=== PATIENT | male | born 1970 | race African-American/Black ===

== ENCOUNTER 2018-11-05 13:29 | Emergency (ER) | payer MEDICAID, OTHER ==
[~2018-11-05] VITALS: Ht 185.4 cm; Wt 77.0 kg
[2018-11-05 18:15] VITALS: BP 159/88
== END 2018-11-05 18:30 | disposition home or self-care (01) ==
LOC: ER 13:29
DX: R07.89 Other chest pain (principal); R51 Headache; E11.22 Type 2 diabetes mellitus with diabetic chronic kidney disease; I12.0 Hypertensive chronic kidney disease with stage 5 chronic kidney disease or end stage renal disease; N18.9 Chronic kidney disease, unspecified; Z99.2 Dependence on renal dialysis; Z88.0 Allergy status to penicillin
CPT/HCPCS: 71045; 93005; 99283

== ENCOUNTER 2019-01-07 11:12 | Emergency (ER) | payer OTHER ==
[~2019-01-07] VITALS: Ht 185.4 cm; Wt 82.0 kg
[2019-01-07 12:02] LABS: BASOPHILS % 0.7 % (0.0-2.0); EOSINOPHILS % 3.1 % (0.0-5.0); HEMATOCRIT. 29.9 % (42.0-52.0); LYMPHOCYTES % 13.2 % (20.0-50.0); MEAN CORPUSCULAR HEMOGLOBIN 26.8 pg (28.0-32.0); MEAN CORPUSCULAR VOLUME 80.4 fL (80.0-94.0); MEAN PLATELET VOLUME 6.4 fl (7.4-10.4); MONOCYTES % 7.9 % (2.0-8.0); NEUTROPHILS % 75.1 % (40.0-76.0); PLATELET 374 x1000/uL (130-400); RED BLOOD CELL COUNT 3.72 mill/uL (4.7-6.1); RED CELL DISTRIBUTION WIDTH 14.6 % (11.6-14.6)
[2019-01-07 12:07] LABS: CHLORIDE 95 mEq/L (98-107)
[2019-01-07 12:09] LABS: PROTHROMBIN TIME 10.6 sec (9.6-11.0)
[2019-01-07] MEDS ORDERED: LEVOFLOXACIN 750MG PREMIX 150 ML IV ONE (12:45)
[2019-01-07 16:05] VITALS: BP 181/87
== END 2019-01-07 16:20 | disposition short-term general hospital (02) ==
LOC: ER 11:12 → CANBEDREQ 14:29 → ER 16:20
DX: I13.2 Hypertensive heart and chronic kidney disease with heart failure and with stage 5 chronic kidney disease, or end stage renal disease (principal); I50.9 Heart failure, unspecified; J18.1 Lobar pneumonia, unspecified organism; E11.22 Type 2 diabetes mellitus with diabetic chronic kidney disease; N18.6 End stage renal disease; Z99.2 Dependence on renal dialysis; Z79.899 Other long term (current) drug therapy
CPT/HCPCS: 36415; 71045; 80053; 83880; 84484; 85025; 85610; 93005; 99285; J1956; Z7610

== ENCOUNTER 2020-02-15 11:17 | Emergency (ER) | payer OTHER ==
[~2020-02-15] VITALS: Ht 185.4 cm; Wt 80.0 kg
[~2020-02-15 11:17] MED LIST: LOSA100T32 MT; NIFE60TA78 MT
[2020-02-15 12:45] LABS: BASOPHILS % 0.8 % (0.0-2.0); EOSINOPHILS % 2.8 % (0.0-5.0); HEMATOCRIT. 25.1 % (42.0-52.0); HEMOGLOBIN. 8.3 g/dL (14.0-18.0); LYMPHOCYTES % 14.8 % (20.0-50.0); MEAN CORPUSCULAR HEMOGLOBIN 29.2 pg (28.0-32.0); MEAN CORPUSCULAR VOLUME 88.4 fL (80.0-94.0); MEAN PLATELET VOLUME 7.3 fl (7.4-10.4); MONOCYTES % 7.6 % (2.0-8.0); PLATELET 278 x1000/uL (130-400); RED BLOOD CELL COUNT 2.84 mill/uL (4.7-6.1); RED CELL DISTRIBUTION WIDTH 15.7 % (11.6-14.6)
[2020-02-15 12:49] LABS: CHLORIDE 103 mEq/L (98-107)
[2020-02-15 13:00] LABS: PROTHROMBIN TIME 10.8 sec (9.6-11.0)
[2020-02-15 14:34] VITALS: BP 153/66
[2020-02-26] MEDS ORDERED: LEVO500T2 MT (09:09)
== END 2020-02-15 14:38 | disposition home or self-care (01) ==
LOC: ER 11:17
DX: U07.1 COVID-19 (principal); R06.02 Shortness of breath; R05 Cough; N18.6 End stage renal disease; Z99.2 Dependence on renal dialysis
CPT/HCPCS: 36415; 71045; 80053; 84484; 85025; 87635; 93005; 99284; 99285

== ENCOUNTER 2020-06-29 11:03 | Emergency (ER) | payer OTHER ==
[~2020-06-29] VITALS: Ht 182.9 cm; Wt 76.0 kg
[2020-06-29 11:51] LABS: HEMATOCRIT. 27.2 % (42.0-52.0); HEMOGLOBIN. 8.4 g/dL (14.0-18.0); MEAN CORPUSCULAR HEMOGLOBIN 25.9 pg (28.0-32.0); MEAN CORPUSCULAR VOLUME 83.8 fL (80.0-94.0); MEAN PLATELET VOLUME 7.6 fl (7.4-10.4); PLATELET 303 x1000/uL (130-400); RED BLOOD CELL COUNT 3.24 mill/uL (4.7-6.1); RED CELL DISTRIBUTION WIDTH 16.4 % (11.6-14.6)
[2020-06-29 12:00] LABS: CHLORIDE 93 mEq/L (98-107)
[2020-06-29 12:02] LABS: INR 1.2; PROTHROMBIN TIME 12.1 sec (9.6-11.0)
[2020-06-29 12:45] LABS: PLATELET ESTIMATE NORMAL
[2020-06-29] MEDS ORDERED: ASPIRIN 81MG TABLET PO NR (13:30)
[2020-06-29] MEDS ORDERED: NITROGLYCERIN OINT 1GM/INCH UDPKT TD NR (13:30)
[2020-06-29 15:29] VITALS: BP 170/80
== END 2020-06-29 15:53 | disposition short-term general hospital (02) ==
LOC: ER 11:03 → CANBEDREQ 15:51 → ER 15:53
DX: U07.1 COVID-19 (principal); I13.2 Hypertensive heart and chronic kidney disease with heart failure and with stage 5 chronic kidney disease, or end stage renal disease; I50.9 Heart failure, unspecified; N18.6 End stage renal disease; E87.2 Acidosis; Z99.2 Dependence on renal dialysis
CPT/HCPCS: 36415; 71045; 80053; 82962; 83605; 83880; 84145; 84484; 85025; 85610; 87040; 87635; 93005; 99285; Z7610

== ENCOUNTER 2020-07-24 11:59 | Inpatient (IN) | payer OTHER ==
[~2020-07-24] VITALS: Ht 182.9 cm; Wt 97.5 kg
[2020-07-24 13:10] LABS: HEMATOCRIT. 23.6 % (42.0-52.0); HEMOGLOBIN. 7.6 g/dL (14.0-18.0); MEAN CORPUSCULAR HEMOGLOBIN 27.3 pg (28.0-32.0); MEAN CORPUSCULAR VOLUME 84.9 fL (80.0-94.0); MEAN PLATELET VOLUME 8.1 fl (7.4-10.4); PLATELET 250 x1000/uL (130-400); RED BLOOD CELL COUNT 2.78 mill/uL (4.7-6.1); RED CELL DISTRIBUTION WIDTH 17.4 % (11.6-14.6)
[2020-07-24 13:15] LABS: CHLORIDE 83 mEq/L (98-107)
[2020-07-24 13:40] LABS: PLATELET ESTIMATE NORMAL
[2020-07-24] MEDS ORDERED: LORAZEPAM 0.5MG TABLET PO PRN (17:00)
[2020-07-24] MEDS ORDERED: ACETAMINOPHEN 325MG TABLET PO PRN (17:00)
[2020-07-24 17:40] LABS: BG BASE EXCESS -3.4 mmol/L (-2.0-2.0); BG CARBOXYHEMOGLOBIN 0.3 % (0.5-1.5); BG DEOXYHEMOGLOBIN 4.5 % (0.0-5.0); BG HCO3 ACT 21.6 mmol/L (22.0-26.0); BG METHEMOGLOBIN 0.1 % (0.0-1.5); BG OXYGEN SATURATION 95.5 % (92.0-98.5); BG OXYHEMOGLOBIN 95.1 % (94.0-97.0); BG PCO2 38.9 mmHg (35.0-45.0); BG PH 7.363 (7.350-7.450); BG PO2 90.2 mmHg (75.0-100.0); BG SAMPLE SITE RIGHT RADIAL; BG TOTAL HEMOGLOBIN 7.5 g/dL (12.0-18.0); BG VENT MODE ROOM AIR
[2020-07-24] MEDS: CLONIDINE 0.1MG TABLET PO PRN (18:22)
[2020-07-24] MEDS ORDERED: DEXTROSE 50% WATER 50ML SYRINGE IV PRN (20:00)
[2020-07-24] MEDS: INSULIN LISPRO (LOW DOSE) 100 UNITS/ML SUBCUT SCH (21:00)
[2020-07-24] MEDS: BLOOD SUGAR DIAGNOSTIC STRIP TEST SCH (21:34)
[2020-07-25] VITALS (30 sets, daily range): BP systolic 137–162; BP diastolic 49–86
[2020-07-25 05:20] LABS: BASOPHILS % 0.3 % (0.0-2.0); LYMPHOCYTES % 9.7 % (20.0-50.0); MEAN CORPUSCULAR HEMOGLOBIN 27.7 pg (28.0-32.0); MEAN CORPUSCULAR VOLUME 83.6 fL (80.0-94.0); MEAN PLATELET VOLUME 7.7 fl (7.4-10.4); MONOCYTES % 9.5 % (2.0-8.0); NEUTROPHILS % 77.5 % (40.0-76.0); PLATELET 204 x1000/uL (130-400); RED BLOOD CELL COUNT 2.35 mill/uL (4.7-6.1); RED CELL DISTRIBUTION WIDTH 17.1 % (11.6-14.6)
[2020-07-25 06:12] LABS: HEMATOCRIT. 19.7 % (42.0-52.0); HEMOGLOBIN. 6.5 g/dL (14.0-18.0)
[2020-07-25] MEDS: BLOOD SUGAR DIAGNOSTIC STRIP TEST SCH ×4 (06:30→21:00)
[2020-07-25] MEDS: INSULIN LISPRO (LOW DOSE) 100 UNITS/ML SUBCUT SCH ×4 (07:00→21:00)
[2020-07-25] MEDS ORDERED: CLINDAMYCIN 600MG PREMIX 50 ML IV ONE (10:00)
[2020-07-25] MEDS ORDERED: CLINDAMYCIN 600 MG in DEXTROSE 5% WATER 50 ML IV ONE (10:00)
[2020-07-25] MEDS ORDERED: SODIUM BICARBONATE 4% (2.4MEQ) 5ML VIAL IV ONE (10:56)
[2020-07-25] MEDS ORDERED: LIDOCAINE HCL 1% 20ML VIAL (Pyxis) INJ ONE (10:56)
[2020-07-25] MEDS ORDERED: HEPARIN 1000 UNITS/ML 10ML ONE (10:56)
[2020-07-25] MEDS ORDERED: IOHEXOL-300 100 ML BOTTLE ONE (10:57)
[2020-07-25 11:00] LABS: PARTIAL THROMBOPLASTIN TIME 28.5 sec (23.4-31.0); PROTHROMBIN TIME 10.7 sec (9.6-11.0)
[2020-07-25] MEDS ORDERED: FENTANYL CITRATE/PF 50MCG/ML 2ML VIAL IV ONE (11:00)
[2020-07-25] MEDS ORDERED: FENTANYL CITRATE/PF 50MCG/ML 2ML VIAL ONE (11:05)
[2020-07-25] MEDS: IRON SUCROSE COMPLEX 100 MG/5 ML ML IV SCH (14:56)
[2020-07-25] MEDS ORDERED: MORPHINE SULFATE 2 MG/ML CPJ (NOT FOR IM USE) IV NR ×2 (15:45→16:15)
[2020-07-25] MEDS ORDERED: HYDROCODONE/ACETAMINOPHEN 10/325MG TABLET PO PRN (16:00)
[2020-07-25] MEDS: ACETAMINOPHEN 325MG TABLET PO PRN (23:04)
[2020-07-25] MEDS: EPOETIN ALFA-EPBX 10,000 UNIT/ML VIAL SUBCUT SCH (23:09)
[2020-07-26] VITALS (7 sets, daily range): BP systolic 104–145; BP diastolic 63–72
[2020-07-26 06:01] LABS: BASOPHILS % 0.3 % (0.0-2.0); EOSINOPHILS % 2.6 % (0.0-5.0); LYMPHOCYTES % 8.3 % (20.0-50.0); MEAN CORPUSCULAR HEMOGLOBIN 28.3 pg (28.0-32.0); MEAN CORPUSCULAR VOLUME 84.2 fL (80.0-94.0); MEAN PLATELET VOLUME 8.3 fl (7.4-10.4); MONOCYTES % 9.2 % (2.0-8.0); NEUTROPHILS % 79.6 % (40.0-76.0); PLATELET 192 x1000/uL (130-400); RED BLOOD CELL COUNT 2.24 mill/uL (4.7-6.1); RED CELL DISTRIBUTION WIDTH 17.3 % (11.6-14.6)
[2020-07-26 06:51] LABS: HEMATOCRIT. 18.9 % (42.0-52.0); HEMOGLOBIN. 6.3 g/dL (14.0-18.0)
[2020-07-26] MEDS: INSULIN LISPRO (LOW DOSE) 100 UNITS/ML SUBCUT SCH ×4 (07:40→20:41)
[2020-07-26] MEDS: BLOOD SUGAR DIAGNOSTIC STRIP TEST SCH ×4 (08:04→20:41)
[2020-07-26] MEDS: NIFEDIPINE XL 60MG TAB PO SCH (09:24)
[2020-07-26] MEDS: IRON SUCROSE COMPLEX 100 MG/5 ML ML IV SCH (09:24)
[2020-07-26] MEDS: LOSARTAN POTASSIUM 100 MG TABLET PO SCH (09:24)
[2020-07-26] MEDS: HYDROCODONE/ACETAMINOPHEN 10/325MG TABLET PO PRN ×2 (10:44→20:46)
[2020-07-26] MEDS ORDERED: EPOETIN ALFA-EPBX 10,000 UNIT/ML VIAL SUBCUT SCH (21:00)
[2020-07-27] VITALS: BP 116/85
[2020-07-27 04:00] VITALS: BP 136/64
[2020-07-27 05:53] LABS: BASOPHILS % 0.4 % (0.0-2.0); EOSINOPHILS % 4.2 % (0.0-5.0); LYMPHOCYTES % 12.2 % (20.0-50.0); MEAN CORPUSCULAR HEMOGLOBIN 28.2 pg (28.0-32.0); MEAN PLATELET VOLUME 8.1 fl (7.4-10.4); MONOCYTES % 9.5 % (2.0-8.0); NEUTROPHILS % 73.7 % (40.0-76.0); PLATELET 176 x1000/uL (130-400); RED BLOOD CELL COUNT 2.16 mill/uL (4.7-6.1); RED CELL DISTRIBUTION WIDTH 17.6 % (11.6-14.6)
[2020-07-27 06:06] LABS: HEMATOCRIT. 18.3 % (42.0-52.0); HEMOGLOBIN. 6.1 g/dL (14.0-18.0)
[2020-07-27] MEDS: BLOOD SUGAR DIAGNOSTIC STRIP TEST SCH ×4 (06:26→21:45)
[2020-07-27] MEDS ORDERED: LIDOCAINE HCL 1% 20ML VIAL (Pyxis) INJ ONE (07:10)
[2020-07-27] MEDS ORDERED: BACITRACIN 15GM TUBE TOP ONE (07:10)
[2020-07-27] MEDS ORDERED: BACITRACIN 50,000 UNITS/VIAL ONE (07:11)
[2020-07-27] MEDS ORDERED: BUPIVACAINE HCL/PF 0.5% (5MG/ML) 10ML ONE (07:11)
[2020-07-27] MEDS ORDERED: THROMBIN (BOVINE) 5000 UNITS/VIAL TOP ONE (07:11)
[2020-07-27] MEDS ORDERED: HEPARIN SODIUM 1,000 UNIT/1ML VIAL IV ONE (07:11)
[2020-07-27] MEDS ORDERED: SODIUM CHLORIDE 0.9% INJ 10ML FLUSH IVF ONE (07:11)
[2020-07-27] MEDS ORDERED: SODIUM CHLORIDE 0.9% 250 ML IV ONE (07:12)
[2020-07-27] MEDS ORDERED: SODIUM CHLORIDE 0.9% 1,000 ML ONE (07:12)
[2020-07-27] MEDS: INSULIN LISPRO (LOW DOSE) 100 UNITS/ML SUBCUT SCH ×4 (07:40→21:00)
[2020-07-27] MEDS: HYDROCODONE/ACETAMINOPHEN 10/325MG TABLET PO PRN ×2 (07:46→18:12)
[2020-07-27 09:10] VITALS: BP 137/63
[2020-07-27] MEDS: LOSARTAN POTASSIUM 100 MG TABLET PO SCH (09:13)
[2020-07-27] MEDS: NIFEDIPINE XL 60MG TAB PO SCH (09:14)
[2020-07-27] MEDS: IRON SUCROSE COMPLEX 100 MG/5 ML ML IV SCH (09:14)
[2020-07-27] MEDS ORDERED: MORPHINE SULFATE 2 MG/ML CPJ (NOT FOR IM USE) IV PRN (10:30)
[2020-07-27] MEDS ORDERED: ROPIVACAINE HCL 10MG/ML 20 ML VIAL EPI ONE (11:15)
[2020-07-27] MEDS ORDERED: MIDAZOLAM HCL 2 MG/2 ML VIAL ONE ×2 (11:19→11:58)
[2020-07-27] MEDS ORDERED: FENTANYL CITRATE/PF 50MCG/ML 2ML VIAL ONE (11:20)
[2020-07-27] MEDS ORDERED: LIDOCAINE HCL/PF 1% 10 MG/ML 5ML VIAL ONE ×2 (11:23→11:25)
[2020-07-27] MEDS ORDERED: CLINDAMYCIN 900 MG PREMIX 50 ML IV ONE (11:33)
[2020-07-27] MEDS ORDERED: DIPHENHYDRAMINE 50MG/ML VIAL ONE (11:51)
[2020-07-27] MEDS ORDERED: EPHEDRINE SULFATE 50MG/ML VIAL ONE (12:23)
[2020-07-27] MEDS ORDERED: FLUMAZENIL 0.1 MG/ML 5ML VIAL IV ONE (13:32)
[2020-07-27] MEDS ORDERED: HEPARIN 1000 UNITS/ML 10ML ONE (13:38)
[2020-07-27] MEDS ORDERED: HYDROMORPHONE HCL/PF 2MG/ML CPJ IV PRN (14:00)
[2020-07-27] MEDS ORDERED: IPRATROPIUM/ALBUTEROL 0.5-3(2.5)MG/3ML NEB HHN SCH (18:45)
[2020-07-27] MEDS ORDERED: LACTULOSE 20G/30ML UDC PO NR (19:00)
[2020-07-27 20:00] VITALS: BP 131/63
[2020-07-27 21:22] LABS: HEPATITIS B SURFACE AB < 3.1 mIU/mL
[2020-07-27 21:34] LABS: HEPATITIS B SURFACE ANTIGEN NEGATIVE
[2020-07-27] MEDS: EPOETIN ALFA-EPBX 10,000 UNIT/ML VIAL SUBCUT SCH (21:45)
[2020-07-28] VITALS: BP 114/57
[2020-07-28] MEDS ORDERED: IPRATROPIUM/ALBUTEROL 0.5-3(2.5)MG/3ML NEB HHN SCH
[2020-07-28 04:00] VITALS: BP 113/55
[2020-07-28] MEDS: HYDROCODONE/ACETAMINOPHEN 10/325MG TABLET PO PRN ×2 (04:02→19:39)
[2020-07-28 06:58] LABS: MEAN CORPUSCULAR HEMOGLOBIN 28.5 pg (28.0-32.0); MEAN CORPUSCULAR VOLUME 85.1 fL (80.0-94.0); MEAN PLATELET VOLUME 7.9 fl (7.4-10.4); PLATELET 147 x1000/uL (130-400); RED BLOOD CELL COUNT 2.38 mill/uL (4.7-6.1); RED CELL DISTRIBUTION WIDTH 16.6 % (11.6-14.6)
[2020-07-28] MEDS: INSULIN LISPRO (LOW DOSE) 100 UNITS/ML SUBCUT SCH ×4 (07:40→21:00)
[2020-07-28 07:50] LABS: HEMATOCRIT. 20.2 % (42.0-52.0); HEMOGLOBIN. 6.8 g/dL (14.0-18.0)
[2020-07-28 08:00] VITALS: BP 106/50
[2020-07-28] MEDS: BLOOD SUGAR DIAGNOSTIC STRIP TEST SCH ×4 (08:03→21:43)
[2020-07-28] MEDS: LOSARTAN POTASSIUM 100 MG TABLET PO SCH (09:00)
[2020-07-28] MEDS: NIFEDIPINE XL 60MG TAB PO SCH (09:00)
[2020-07-28] MEDS: IRON SUCROSE COMPLEX 100 MG/5 ML ML IV SCH (09:26)
[2020-07-28 12:00] VITALS: BP 136/76
[2020-07-28] MEDS ORDERED: DILTIAZEM HCL 5MG/ML 5ML VIAL IV SCH ×2 (13:30→21:00)
[2020-07-28] MEDS ORDERED: DILTIAZEM HCL 60MG TABLET PO NR (13:45)
[2020-07-28 14:01] LABS: NUCLEATED RED BLOOD CELLS 2 /100 WBC
[2020-07-28 14:02] LABS: PLATELET ESTIMATE NORMAL
[2020-07-28] MEDS: DILTIAZEM HCL 5MG/ML 5ML VIAL IV PRN (15:29)
[2020-07-28 16:00] VITALS: BP 103/52
[2020-07-28 20:00] VITALS: BP 113/54
[2020-07-28] MEDS: LACTULOSE 20G/30ML UDC PO PRN (21:57)
[2020-07-28] MEDS: CARVEDILOL 3.125 MG TABLET PO SCH (21:58)
[2020-07-28] MEDS ORDERED: EPOETIN ALFA-EPBX 4,000 UNIT/ML VIAL SUBCUT NR (22:00)
[2020-07-28] MEDS: DILTIAZEM HCL 60MG TABLET PO SCH (22:01)
[2020-07-29] VITALS: BP 112/58
[2020-07-29 04:00] VITALS: BP 124/61
[2020-07-29] MEDS: DILTIAZEM HCL 60MG TABLET PO SCH (07:01)
[2020-07-29] MEDS: INSULIN LISPRO (LOW DOSE) 100 UNITS/ML SUBCUT SCH ×4 (07:02→21:00)
[2020-07-29] MEDS: BLOOD SUGAR DIAGNOSTIC STRIP TEST SCH ×4 (07:02→21:54)
[2020-07-29 07:41] LABS: MEAN CORPUSCULAR HEMOGLOBIN 28.4 pg (28.0-32.0); MEAN CORPUSCULAR VOLUME 87.8 fL (80.0-94.0); MEAN PLATELET VOLUME 7.8 fl (7.4-10.4); PLATELET 135 x1000/uL (130-400); RED BLOOD CELL COUNT 2.23 mill/uL (4.7-6.1); RED CELL DISTRIBUTION WIDTH 17.5 % (11.6-14.6)
[2020-07-29 08:00] VITALS: BP 130/61
[2020-07-29] MEDS: CARVEDILOL 3.125 MG TABLET PO SCH (08:53)
[2020-07-29] MEDS: HYDROCODONE/ACETAMINOPHEN 10/325MG TABLET PO PRN ×3 (08:53→21:59)
[2020-07-29] MEDS: IRON SUCROSE COMPLEX 100 MG/5 ML ML IV SCH (08:54)
[2020-07-29 09:04] LABS: HEMATOCRIT. 19.6 % (42.0-52.0); HEMOGLOBIN. 6.3 g/dL (14.0-18.0)
[2020-07-29] MEDS ORDERED: LEVOFLOXACIN 500MG PREMIX 100 ML IV NR (10:00)
[2020-07-29 12:00] VITALS: BP 141/54
[2020-07-29] MEDS ORDERED: BENZONATATE 100MG CAPSULE PO PRN (13:00)
[2020-07-29 16:00] VITALS: BP 119/64
[2020-07-29] MEDS ORDERED: VANCOMYCIN 1250MG in DEXTROSE 5% WATER 250ML IV NR (17:00)
[2020-07-29] MEDS: DILTIAZEM HCL 30MG TABLET PO SCH (18:45)
[2020-07-29 20:00] VITALS: BP 122/55
[2020-07-29] MEDS: EPOETIN ALFA-EPBX 10,000 UNIT/ML VIAL SUBCUT SCH (21:54)
[2020-07-29] MEDS: CARVEDILOL 12.5MG TABLET PO SCH (21:54)
[2020-07-30] VITALS: BP 99/50
[2020-07-30 00:49] LABS: PLATELET ESTIMATE NORMAL
[2020-07-30 04:00] VITALS: BP 135/68
[2020-07-30] MEDS: DILTIAZEM HCL 30MG TABLET PO SCH ×4 (05:38→17:31)
[2020-07-30 06:49] LABS: MEAN CORPUSCULAR HEMOGLOBIN 29.1 pg (28.0-32.0); MEAN CORPUSCULAR VOLUME 88.1 fL (80.0-94.0); MEAN PLATELET VOLUME 7.9 fl (7.4-10.4); PLATELET 129 x1000/uL (130-400); RED BLOOD CELL COUNT 1.89 mill/uL (4.7-6.1); RED CELL DISTRIBUTION WIDTH 17.4 % (11.6-14.6)
[2020-07-30 07:18] LABS: HEMOGLOBIN. 5.5 g/dL (14.0-18.0)
[2020-07-30 07:19] LABS: HEMATOCRIT. 16.6 % (42.0-52.0)
[2020-07-30] MEDS: INSULIN LISPRO (LOW DOSE) 100 UNITS/ML SUBCUT SCH ×4 (07:40→20:48)
[2020-07-30 08:00] VITALS: BP 118/56
[2020-07-30] MEDS: CARVEDILOL 12.5MG TABLET PO SCH ×2 (08:23→21:00)
[2020-07-30 12:00] VITALS: BP 122/60
[2020-07-30] MEDS: BLOOD SUGAR DIAGNOSTIC STRIP TEST SCH ×3 (12:10→20:48)
[2020-07-30] MEDS: ACETAMINOPHEN 325MG TABLET PO PRN (12:44)
[2020-07-30] MEDS ORDERED: VANCOMYCIN 500 MG PREMIX 100 ML IV NR (13:00)
[2020-07-30 16:00] VITALS: BP 125/58
[2020-07-30] MEDS ORDERED: LACTULOSE 20G/30ML UDC PO NR (18:00)
[2020-07-30] MEDS ORDERED: EPOETIN ALFA 10000UNITS/ML VIAL SUBCUT ONE (18:00)
[2020-07-30] MEDS: IRON SUCROSE COMPLEX 100 MG/5 ML ML IV SCH (18:28)
[2020-07-30 20:00] VITALS: BP 138/68
[2020-07-30] MEDS ORDERED: EPOETIN ALFA-EPBX 4,000 UNIT/ML VIAL SUBCUT SCH (20:00)
[2020-07-30] MEDS: HYDROCODONE/ACETAMINOPHEN 10/325MG TABLET PO PRN (21:14)
[2020-07-30 23:03] LABS: PLATELET ESTIMATE SLIGHTLY DECREASED
[2020-07-31] MEDS: DILTIAZEM HCL 30MG TABLET PO SCH ×4 (01:47→17:55)
[2020-07-31 04:00] VITALS: BP 114/47
[2020-07-31] MEDS: BLOOD SUGAR DIAGNOSTIC STRIP TEST SCH ×4 (06:37→20:07)
[2020-07-31] MEDS: INSULIN LISPRO (LOW DOSE) 100 UNITS/ML SUBCUT SCH ×4 (06:45→20:07)
[2020-07-31 07:30] LABS: MEAN CORPUSCULAR HEMOGLOBIN 28.6 pg (28.0-32.0); MEAN CORPUSCULAR VOLUME 88.1 fL (80.0-94.0); MEAN PLATELET VOLUME 7.6 fl (7.4-10.4); PLATELET 144 x1000/uL (130-400); RED BLOOD CELL COUNT 2.04 mill/uL (4.7-6.1); RED CELL DISTRIBUTION WIDTH 17.4 % (11.6-14.6)
[2020-07-31 08:00] VITALS: BP 125/60
[2020-07-31] MEDS: HYDROCODONE/ACETAMINOPHEN 10/325MG TABLET PO PRN ×2 (08:31→20:06)
[2020-07-31] MEDS: CARVEDILOL 12.5MG TABLET PO SCH ×2 (08:31→20:07)
[2020-07-31 08:59] LABS: HEMOGLOBIN. 5.8 g/dL (14.0-18.0)
[2020-07-31] MEDS ORDERED: LEVOFLOXACIN 250MG PREMIX 50 ML IV SCH (10:00)
[2020-07-31 12:00] VITALS: BP 142/68
[2020-07-31 14:20] LABS: PLATELET ESTIMATE NORMAL
[2020-07-31 16:00] VITALS: BP 144/79
[2020-07-31] MEDS: LACTULOSE 20G/30ML UDC PO PRN (17:55)
[2020-07-31] MEDS: IRON SUCROSE COMPLEX 100 MG/5 ML ML IV SCH (17:55)
[2020-07-31 20:00] VITALS: BP 159/74
[2020-07-31] MEDS: ZOLPIDEM TARTRATE 5MG TABLET PO PRN (20:06)
[2020-08-01] VITALS: BP 114/60
[2020-08-01] MEDS ORDERED: EPOETIN ALFA-EPBX 4,000 UNIT/ML VIAL SUBCUT NR (00:30)
[2020-08-01] MEDS: DILTIAZEM HCL 30MG TABLET PO SCH ×4 (00:47→18:12)
[2020-08-01 04:00] VITALS: BP 122/57
[2020-08-01] MEDS: INSULIN LISPRO (LOW DOSE) 100 UNITS/ML SUBCUT SCH ×4 (05:51→21:00)
[2020-08-01] MEDS: BLOOD SUGAR DIAGNOSTIC STRIP TEST SCH ×4 (05:51→21:21)
[2020-08-01 07:27] LABS: BASOPHILS % 0.5 % (0.0-2.0); EOSINOPHILS % 4.3 % (0.0-5.0); LYMPHOCYTES % 8.6 % (20.0-50.0); MEAN CORPUSCULAR HEMOGLOBIN 28.3 pg (28.0-32.0); MEAN CORPUSCULAR VOLUME 88.4 fL (80.0-94.0); MEAN PLATELET VOLUME 7.3 fl (7.4-10.4); MONOCYTES % 8.1 % (2.0-8.0); NEUTROPHILS % 78.5 % (40.0-76.0); PLATELET 155 x1000/uL (130-400); RED BLOOD CELL COUNT 2.15 mill/uL (4.7-6.1); RED CELL DISTRIBUTION WIDTH 17.6 % (11.6-14.6)
[2020-08-01 07:34] LABS: HEMOGLOBIN. 6.1 g/dL (14.0-18.0)
[2020-08-01 08:00] VITALS: BP 127/69
[2020-08-01] MEDS: CARVEDILOL 12.5MG TABLET PO SCH ×2 (08:23→21:20)
[2020-08-01 12:00] VITALS: BP 151/75
[2020-08-01] MEDS: DILTIAZEM HCL 5MG/ML 5ML VIAL IV PRN ×3 (13:05→13:09)
[2020-08-01 16:00] VITALS: BP 155/78
[2020-08-01] MEDS ORDERED: VANCOMYCIN 750 MG PREMIX 150 ML IV NR (18:00)
[2020-08-01 20:00] VITALS: BP 160/87
[2020-08-01] MEDS: IRON SUCROSE COMPLEX 100 MG/5 ML ML IV SCH (20:14)
[2020-08-01] MEDS: ZOLPIDEM TARTRATE 5MG TABLET PO PRN (21:20)
[2020-08-01] MEDS: HYDROCODONE/ACETAMINOPHEN 10/325MG TABLET PO PRN (21:21)
[2020-08-02] VITALS: BP 152/82
[2020-08-02] MEDS ORDERED: IRON SUCROSE COMPLEX 100 MG/5 ML ML IV SCH
[2020-08-02] MEDS: DILTIAZEM HCL 30MG TABLET PO SCH ×4 (00:35→22:11)
[2020-08-02 04:00] VITALS: BP 148/68
[2020-08-02] MEDS: INSULIN LISPRO (LOW DOSE) 100 UNITS/ML SUBCUT SCH ×4 (05:49→21:00)
[2020-08-02] MEDS: BLOOD SUGAR DIAGNOSTIC STRIP TEST SCH ×4 (05:49→21:00)
[2020-08-02] MEDS ORDERED: EPOETIN ALFA 10000UNITS/ML VIAL SUBCUT ONE (07:30)
[2020-08-02] MEDS ORDERED: EPOETIN ALFA-EPBX 4,000 UNIT/ML VIAL SUBCUT SCH (07:30)
[2020-08-02 08:00] VITALS: BP 130/59
[2020-08-02] MEDS: HYDROCODONE/ACETAMINOPHEN 10/325MG TABLET PO PRN ×3 (08:59→22:40)
[2020-08-02] MEDS: CARVEDILOL 12.5MG TABLET PO SCH ×2 (08:59→22:10)
[2020-08-02 09:29] LABS: BASOPHILS % 0.8 % (0.0-2.0); EOSINOPHILS % 3.6 % (0.0-5.0); LYMPHOCYTES % 10.3 % (20.0-50.0); MEAN CORPUSCULAR HEMOGLOBIN 28.6 pg (28.0-32.0); MEAN CORPUSCULAR VOLUME 89.4 fL (80.0-94.0); MEAN PLATELET VOLUME 7.1 fl (7.4-10.4); MONOCYTES % 9.5 % (2.0-8.0); NEUTROPHILS % 75.8 % (40.0-76.0); PLATELET 167 x1000/uL (130-400); RED BLOOD CELL COUNT 2.16 mill/uL (4.7-6.1); RED CELL DISTRIBUTION WIDTH 18.3 % (11.6-14.6)
[2020-08-02 09:48] LABS: HEMATOCRIT. 19.3 % (42.0-52.0); HEMOGLOBIN. 6.2 g/dL (14.0-18.0)
[2020-08-02] MEDS ORDERED: LEVOFLOXACIN 250MG TABLET PO SCH (11:00)
[2020-08-02 12:30] VITALS: BP 133/64
[2020-08-02] MEDS ORDERED: IPRATROPIUM/ALBUTEROL 0.5-3(2.5)MG/3ML NEB HHN PRN (15:30)
[2020-08-02 16:00] VITALS: BP 146/74
[2020-08-02 20:00] VITALS: BP 160/76
[2020-08-02] MEDS: IRON SUCROSE COMPLEX 100 MG/5 ML ML IV SCH (22:12)
[2020-08-02] MEDS: ZOLPIDEM TARTRATE 5MG TABLET PO PRN (22:40)
[2020-08-02] MEDS: DOCUSATE SODIUM 100MG CAPSULE PO SCH (23:05)
[2020-08-03] VITALS: BP 148/76
[2020-08-03 04:00] VITALS: BP 143/75
[2020-08-03] MEDS: DILTIAZEM HCL 30MG TABLET PO SCH (06:00)
[2020-08-03 06:07] LABS: CHLORIDE 102 mEq/L (98-107)
[2020-08-03] MEDS: BLOOD SUGAR DIAGNOSTIC STRIP TEST SCH ×4 (06:25→21:02)
[2020-08-03] MEDS: INSULIN LISPRO (LOW DOSE) 100 UNITS/ML SUBCUT SCH ×4 (06:25→21:00)
[2020-08-03 06:26] LABS: BASOPHILS % 0.8 % (0.0-2.0); EOSINOPHILS % 3.9 % (0.0-5.0); LYMPHOCYTES % 14.6 % (20.0-50.0); MEAN CORPUSCULAR HEMOGLOBIN 28.7 pg (28.0-32.0); MEAN CORPUSCULAR VOLUME 89.5 fL (80.0-94.0); MEAN PLATELET VOLUME 7.2 fl (7.4-10.4); MONOCYTES % 11.1 % (2.0-8.0); NEUTROPHILS % 69.6 % (40.0-76.0); PLATELET 160 x1000/uL (130-400); RED BLOOD CELL COUNT 2.04 mill/uL (4.7-6.1)
[2020-08-03 08:00] VITALS: BP 116/68
[2020-08-03 08:59] LABS: HEMATOCRIT. 18.3 % (42.0-52.0); HEMOGLOBIN. 5.9 g/dL (14.0-18.0)
[2020-08-03] MEDS: CARVEDILOL 12.5MG TABLET PO SCH ×2 (09:00→21:01)
[2020-08-03] MEDS: DOCUSATE SODIUM 100MG CAPSULE PO SCH ×3 (09:00→18:49)
[2020-08-03 12:00] VITALS: BP 189/87
[2020-08-03] MEDS: CLONIDINE 0.1MG TABLET PO PRN ×2 (12:06→18:48)
[2020-08-03] MEDS: DILTIAZEM HCL 60MG TABLET PO SCH ×2 (15:36→22:29)
[2020-08-03 16:00] VITALS: BP 163/84
[2020-08-03] MEDS ORDERED: FUROSEMIDE 40MG TABLET PO NR (19:00)
[2020-08-03 20:00] VITALS: BP 172/90
[2020-08-03] MEDS: IRON SUCROSE COMPLEX 100 MG/5 ML ML IV SCH (21:01)
[2020-08-03] MEDS: CLONIDINE 0.1MG TABLET PO SCH (21:01)
[2020-08-03] MEDS: ZOLPIDEM TARTRATE 5MG TABLET PO PRN (22:29)
[2020-08-03] MEDS: HYDROCODONE/ACETAMINOPHEN 10/325MG TABLET PO PRN (22:30)
[2020-08-04] VITALS: BP 165/88
[2020-08-04] MEDS: CLONIDINE 0.1MG TABLET PO PRN (00:38)
[2020-08-04 04:00] VITALS: BP 126/57
[2020-08-04] MEDS: DILTIAZEM HCL 60MG TABLET PO SCH (06:16)
[2020-08-04] MEDS: INSULIN LISPRO (LOW DOSE) 100 UNITS/ML SUBCUT SCH ×4 (06:16→21:00)
[2020-08-04] MEDS: CLONIDINE 0.1MG TABLET PO SCH ×2 (06:16→21:18)
[2020-08-04] MEDS: FUROSEMIDE 40MG TABLET PO SCH ×2 (06:16→17:29)
[2020-08-04] MEDS: BLOOD SUGAR DIAGNOSTIC STRIP TEST SCH ×4 (06:16→21:20)
[2020-08-04 07:41] LABS: BASOPHILS % 0.9 % (0.0-2.0); EOSINOPHILS % 3.2 % (0.0-5.0); LYMPHOCYTES % 15.2 % (20.0-50.0); MEAN CORPUSCULAR HEMOGLOBIN 29.4 pg (28.0-32.0); MEAN CORPUSCULAR VOLUME 89.6 fL (80.0-94.0); MEAN PLATELET VOLUME 7.2 fl (7.4-10.4); MONOCYTES % 10.3 % (2.0-8.0); NEUTROPHILS % 70.4 % (40.0-76.0); PLATELET 189 x1000/uL (130-400); RED BLOOD CELL COUNT 2.09 mill/uL (4.7-6.1); RED CELL DISTRIBUTION WIDTH 19.5 % (11.6-14.6)
[2020-08-04 08:00] VITALS: BP 126/60
[2020-08-04] MEDS: DOCUSATE SODIUM 100MG CAPSULE PO SCH ×3 (08:12→17:29)
[2020-08-04] MEDS: CARVEDILOL 12.5MG TABLET PO SCH ×2 (08:13→21:13)
[2020-08-04 08:28] LABS: HEMOGLOBIN. 6.1 g/dL (14.0-18.0)
[2020-08-04 08:29] LABS: HEMATOCRIT. 18.7 % (42.0-52.0)
[2020-08-04] MEDS ORDERED: CLONIDINE 0.1MG TABLET PO SCH (09:30)
[2020-08-04] MEDS ORDERED: HEPARIN SODIUM 1,000 UNIT/1ML VIAL IV NR (12:15)
[2020-08-04] MEDS: DILTIAZEM HCL 30MG TABLET PO SCH ×2 (13:36→17:50)
[2020-08-04 16:00] VITALS: BP 144/74
[2020-08-04] MEDS: ONDANSETRON HCL 4MG/2ML INJ IV PRN (17:42)
[2020-08-04 20:00] VITALS: BP 159/78
[2020-08-04] MEDS ORDERED: DIPHENHYDRAMINE 50MG CAPSULE PO PRN (20:00)
[2020-08-04] MEDS ORDERED: EPOETIN ALFA-EPBX 4,000 UNIT/ML VIAL SUBCUT NR (21:00)
[2020-08-04] MEDS: HYDROCODONE/ACETAMINOPHEN 10/325MG TABLET PO PRN (23:05)
[2020-08-05] VITALS: BP 132/65
[2020-08-05] MEDS: DILTIAZEM HCL 30MG TABLET PO SCH ×5 (01:08→22:37)
[2020-08-05 04:00] VITALS: BP 134/73
[2020-08-05] MEDS: FUROSEMIDE 40MG TABLET PO SCH ×2 (06:18→17:35)
[2020-08-05] MEDS: INSULIN LISPRO (LOW DOSE) 100 UNITS/ML SUBCUT SCH ×4 (06:22→20:50)
[2020-08-05] MEDS: BLOOD SUGAR DIAGNOSTIC STRIP TEST SCH ×4 (06:22→20:40)
[2020-08-05 08:00] VITALS: BP 133/71
[2020-08-05 08:52] LABS: BASOPHILS % 0.8 % (0.0-2.0); EOSINOPHILS % 3.9 % (0.0-5.0); LYMPHOCYTES % 15.2 % (20.0-50.0); MEAN CORPUSCULAR HEMOGLOBIN 28.8 pg (28.0-32.0); MEAN CORPUSCULAR VOLUME 89.4 fL (80.0-94.0); MONOCYTES % 9.3 % (2.0-8.0); NEUTROPHILS % 70.8 % (40.0-76.0); PLATELET 215 x1000/uL (130-400); RED BLOOD CELL COUNT 2.11 mill/uL (4.7-6.1); RED CELL DISTRIBUTION WIDTH 19.4 % (11.6-14.6)
[2020-08-05 09:04] LABS: HEMATOCRIT. 18.8 % (42.0-52.0); HEMOGLOBIN. 6.1 g/dL (14.0-18.0)
[2020-08-05] MEDS: DOCUSATE SODIUM 100MG CAPSULE PO SCH ×3 (09:28→17:35)
[2020-08-05] MEDS: CARVEDILOL 12.5MG TABLET PO SCH ×2 (09:29→20:40)
[2020-08-05] MEDS: CLONIDINE 0.1MG TABLET PO SCH ×2 (09:29→20:38)
[2020-08-05 17:45] LABS: BG BASE EXCESS 3.9 mmol/L (-2.0-2.0); BG CARBOXYHEMOGLOBIN 0.4 % (0.5-1.5); BG DEOXYHEMOGLOBIN 14.9 % (0.0-5.0); BG FRACTION INSPIRED OXYGEN 21; BG HCO3 ACT 27.9 mmol/L (22.0-26.0); BG METHEMOGLOBIN 0.5 % (0.0-1.5); BG OXYHEMOGLOBIN 84.2 % (94.0-97.0); BG PH 7.472 (7.350-7.450); BG PO2 48.6 mmHg (75.0-100.0); BG SAMPLE SITE RIGHT BRACHIAL; BG TOTAL HEMOGLOBIN 7.7 g/dL (12.0-18.0); BG VENT MODE ROOM AIR
[2020-08-05] MEDS: MAGNESIUM/ALUMINUM HYDROXIDE/SIMETHICONE 30ML UDC PO PRN (18:45)
[2020-08-05 20:00] VITALS: BP 169/83
[2020-08-05] MEDS: HYDROCODONE/ACETAMINOPHEN 10/325MG TABLET PO PRN (20:47)
[2020-08-05] MEDS ORDERED: EPOETIN ALFA-EPBX 4,000 UNIT/ML VIAL SUBCUT NR (21:00)
[2020-08-06 04:00] VITALS: BP 149/72
[2020-08-06] MEDS: DILTIAZEM HCL 30MG TABLET PO SCH ×3 (06:16→21:08)
[2020-08-06] MEDS: BLOOD SUGAR DIAGNOSTIC STRIP TEST SCH ×4 (06:16→20:00)
[2020-08-06] MEDS: FUROSEMIDE 40MG TABLET PO SCH ×2 (06:17→18:10)
[2020-08-06 07:25] LABS: BASOPHILS % 0.7 % (0.0-2.0); EOSINOPHILS % 2.9 % (0.0-5.0); LYMPHOCYTES % 13.1 % (20.0-50.0); MEAN CORPUSCULAR HEMOGLOBIN 27.6 pg (28.0-32.0); MEAN CORPUSCULAR VOLUME 90.2 fL (80.0-94.0); MEAN PLATELET VOLUME 6.9 fl (7.4-10.4); MONOCYTES % 8.8 % (2.0-8.0); NEUTROPHILS % 74.5 % (40.0-76.0); PLATELET 235 x1000/uL (130-400); RED BLOOD CELL COUNT 2.32 mill/uL (4.7-6.1); RED CELL DISTRIBUTION WIDTH 19.5 % (11.6-14.6)
[2020-08-06] MEDS: INSULIN LISPRO (LOW DOSE) 100 UNITS/ML SUBCUT SCH ×4 (07:31→20:00)
[2020-08-06 07:39] LABS: HEMATOCRIT. 20.9 % (42.0-52.0); HEMOGLOBIN. 6.4 g/dL (14.0-18.0)
[2020-08-06 08:00] VITALS: BP 163/81
[2020-08-06] MEDS: DOCUSATE SODIUM 100MG CAPSULE PO SCH ×3 (08:38→18:10)
[2020-08-06] MEDS: CLONIDINE 0.1MG TABLET PO SCH ×2 (08:38→21:07)
[2020-08-06] MEDS: CARVEDILOL 12.5MG TABLET PO SCH ×2 (08:39→21:07)
[2020-08-06 12:00] VITALS: BP 139/69
[2020-08-06 16:00] VITALS: BP 155/69
[2020-08-06] MEDS ORDERED: COR12 PO (16:42)
[2020-08-06] MEDS ORDERED: BENA10TA74 PO (16:42)
[2020-08-06] MEDS ORDERED: CARSR90 MT (16:42)
[2020-08-06] MEDS ORDERED: FURO40TA5 PO (16:42)
[2020-08-06] MEDS ORDERED: CLON0.1T14 PO (16:42)
[2020-08-06 18:00] VITALS: BP 155/70
[2020-08-06 20:00] VITALS: BP 164/82
[2020-08-06] MEDS: HYDROCODONE/ACETAMINOPHEN 10/325MG TABLET PO PRN (21:00)
[2020-08-06] MEDS ORDERED: EPOETIN ALFA-EPBX 4,000 UNIT/ML VIAL SUBCUT NR (21:00)
[2020-08-06] MEDS: ONDANSETRON HCL 4MG/2ML INJ IV PRN (21:07)
[2020-08-06] MEDS: BENAZEPRIL 10MG TABLET PO SCH (21:09)
[2020-08-07] VITALS (8 sets, daily range): BP systolic 121–180; BP diastolic 63–92
[2020-08-07] MEDS: FUROSEMIDE 40MG TABLET PO SCH ×2 (05:53→17:38)
[2020-08-07] MEDS: DILTIAZEM HCL 30MG TABLET PO SCH ×3 (05:53→20:16)
[2020-08-07] MEDS: BLOOD SUGAR DIAGNOSTIC STRIP TEST SCH ×4 (05:57→21:00)
[2020-08-07] MEDS: INSULIN LISPRO (LOW DOSE) 100 UNITS/ML SUBCUT SCH ×4 (05:57→21:00)
[2020-08-07] MEDS: ONDANSETRON HCL 4MG/2ML INJ IV PRN ×3 (08:21→20:16)
[2020-08-07] MEDS ORDERED: HYDR-4001 MT (08:37)
[2020-08-07] MEDS: CLONIDINE 0.1MG TABLET PO SCH ×2 (09:00→21:00)
[2020-08-07] MEDS: CARVEDILOL 12.5MG TABLET PO SCH ×2 (09:00→20:16)
[2020-08-07] MEDS: BENAZEPRIL 10MG TABLET PO SCH ×2 (09:00→20:16)
[2020-08-07] MEDS: DOCUSATE SODIUM 100MG CAPSULE PO SCH ×3 (09:25→17:00)
[2020-08-07] MEDS: HYDROCODONE/ACETAMINOPHEN 10/325MG TABLET PO PRN ×2 (09:25→20:25)
[2020-08-07] MEDS ORDERED: HEPARIN SODIUM 1,000 UNIT/1ML VIAL IV SCH (09:30)
[2020-08-07] MEDS: CLONIDINE 0.1MG TABLET PO PRN ×2 (12:10→18:41)
[2020-08-07] MEDS: MAGNESIUM/ALUMINUM HYDROXIDE/SIMETHICONE 30ML UDC PO PRN (20:24)
[2020-08-07] MEDS ORDERED: CLONIDINE HCL 0.2MG/24HR PATCH TD NR (21:00)
[2020-08-07] MEDS ORDERED: EPOETIN ALFA 10000UNITS/ML VIAL SUBCUT NR (21:00)
[2020-08-08] VITALS: BP 170/90
[2020-08-08] MEDS ORDERED: IRON SUCROSE COMPLEX 100 MG/5 ML ML IV NR
[2020-08-08 04:00] VITALS: BP 150/72
[2020-08-08] MEDS: INSULIN LISPRO (LOW DOSE) 100 UNITS/ML SUBCUT SCH ×3 (05:38→17:30)
[2020-08-08] MEDS: BLOOD SUGAR DIAGNOSTIC STRIP TEST SCH ×3 (05:38→17:30)
[2020-08-08] MEDS: DILTIAZEM HCL 30MG TABLET PO SCH ×2 (05:38→13:14)
[2020-08-08] MEDS: ONDANSETRON HCL 4MG/2ML INJ IV PRN (05:38)
[2020-08-08] MEDS: FUROSEMIDE 40MG TABLET PO SCH ×2 (05:38→17:30)
[2020-08-08] MEDS: HYDROCODONE/ACETAMINOPHEN 10/325MG TABLET PO PRN ×2 (07:48→14:29)
[2020-08-08] MEDS: MAGNESIUM/ALUMINUM HYDROXIDE/SIMETHICONE 30ML UDC PO PRN ×2 (07:48→14:29)
[2020-08-08 08:00] VITALS: BP 144/70
[2020-08-08] MEDS: DOCUSATE SODIUM 100MG CAPSULE PO SCH ×3 (09:00→17:00)
[2020-08-08] MEDS ORDERED: ONDANSETRON 4MG ODT PO PRN (09:00)
[2020-08-08] MEDS: CLONIDINE 0.1MG TABLET PO SCH (09:33)
[2020-08-08] MEDS: BENAZEPRIL 10MG TABLET PO SCH (09:34)
[2020-08-08] MEDS: CARVEDILOL 12.5MG TABLET PO SCH (09:34)
[2020-08-08] MEDS ORDERED: CARV12.545 MT (10:48)
[2020-08-08] MEDS ORDERED: CLON-457 MT (10:48)
[2020-08-08] MEDS ORDERED: FAMO20TA8 MT (10:48)
[2020-08-08] MEDS ORDERED: NIFE-32 MT (10:48)
[2020-08-08] MEDS ORDERED: CARSR90 MT (10:48)
[2020-08-08] MEDS ORDERED: BENA10TA74 MT (10:48)
[2020-08-08] MEDS ORDERED: HYDR-4001 MT (10:48)
[2020-08-08] MEDS ORDERED: LOSA100T32 MT (10:48)
[2020-08-08] MEDS ORDERED: FURO40TA5 MT (10:48)
[2020-08-08 12:00] VITALS: BP 152/73
[2020-08-08 16:00] VITALS: BP 129/73
[2020-08-08] MEDS ORDERED: EPOETIN ALFA-EPBX 4,000 UNIT/ML VIAL SUBCUT NR ×2 (16:00→21:00)
[2020-08-08 16:40] VITALS: BP 129/73
[2020-08-08] MEDS: LACTULOSE 20G/30ML UDC PO PRN (17:30)
== END 2020-08-08 18:00 | disposition home or self-care (01) | DRG 182 ==
LOC: ER 12:06 → MICUSO 15:28 → 8WST 07-25 13:56
PROVIDERS: ADMIT Internal Medicine; ATTEND Internal Medicine
PROC: 5A1D70Z Performance of Urinary Filtration, Intermittent, Less than 6 Hours Per Day (ICD-10-PCS; 2020-07-25)
PROC: 02HV33Z Insertion of Infusion Device into Superior Vena Cava, Percutaneous Approach (ICD-10-PCS; 2020-07-26)
PROC: B5181ZZ Fluoroscopy of Superior Vena Cava using Low Osmolar Contrast (ICD-10-PCS; 2020-07-26)
PROC: B548ZZA Ultrasonography of Superior Vena Cava, Guidance (ICD-10-PCS; 2020-07-26)
PROC: B51V1ZZ Fluoroscopy of Other Veins using Low Osmolar Contrast (ICD-10-PCS; 2020-07-26)
PROC: B5171ZZ Fluoroscopy of Left Subclavian Vein using Low Osmolar Contrast (ICD-10-PCS; 2020-07-26)
PROC: 05LF0ZZ Occlusion of Left Cephalic Vein, Open Approach (ICD-10-PCS; principal; 2020-07-27)
PROC: 30233N1 Transfusion of Nonautologous Red Blood Cells into Peripheral Vein, Percutaneous Approach (ICD-10-PCS; 2020-07-27)
PROC: 5A1D70Z Performance of Urinary Filtration, Intermittent, Less than 6 Hours Per Day (ICD-10-PCS; 2020-07-28)
PROC: 5A1D70Z Performance of Urinary Filtration, Intermittent, Less than 6 Hours Per Day (ICD-10-PCS; 2020-07-29)
PROC: 5A1D70Z Performance of Urinary Filtration, Intermittent, Less than 6 Hours Per Day (ICD-10-PCS; 2020-07-30)
PROC: 5A1D70Z Performance of Urinary Filtration, Intermittent, Less than 6 Hours Per Day (ICD-10-PCS; 2020-07-31)
PROC: 5A1D80Z Performance of Urinary Filtration, Prolonged Intermittent, 6-18 hours Per Day (ICD-10-PCS; 2020-08-04)
PROC: 5A1D70Z Performance of Urinary Filtration, Intermittent, Less than 6 Hours Per Day (ICD-10-PCS; 2020-08-06)
DX: T82.818A Embolism due to vascular prosthetic devices, implants and grafts, initial encounter (principal); A41.9 Sepsis, unspecified organism; J96.01 Acute respiratory failure with hypoxia; N18.6 End stage renal disease; E46 Unspecified protein-calorie malnutrition; E11.22 Type 2 diabetes mellitus with diabetic chronic kidney disease; D63.8 Anemia in other chronic diseases classified elsewhere; E11.319 Type 2 diabetes mellitus with unspecified diabetic retinopathy without macular edema; E87.1 Hypo-osmolality and hyponatremia; I49.1 Atrial premature depolarization; G93.49 Other encephalopathy; I27.20 Pulmonary hypertension, unspecified; E87.5 Hyperkalemia; I48.20 Chronic atrial fibrillation, unspecified; E11.40 Type 2 diabetes mellitus with diabetic neuropathy, unspecified; Z53.1 Procedure and treatment not carried out because of patient's decision for reasons of belief and group pressure; I48.92 Unspecified atrial flutter; K59.00 Constipation, unspecified; R16.2 Hepatomegaly with splenomegaly, not elsewhere classified; K21.9 Gastro-esophageal reflux disease without esophagitis; Y83.2 Surgical operation with anastomosis, bypass or graft as the cause of abnormal reaction of the patient, or of later complication, without mention of misadventure at the time of the procedure; E11.51 Type 2 diabetes mellitus with diabetic peripheral angiopathy without gangrene; Z20.822 Contact with and (suspected) exposure to COVID-19; I12.0 Hypertensive chronic kidney disease with stage 5 chronic kidney disease or end stage renal disease; Z99.2 Dependence on renal dialysis; Z88.0 Allergy status to penicillin; Z79.899 Other long term (current) drug therapy; Z87.891 Personal history of nicotine dependence; Z79.84 Long term (current) use of oral hypoglycemic drugs; Z91.15 Patient's noncompliance with renal dialysis; Z82.3 Family history of stroke; Z82.49 Family history of ischemic heart disease and other diseases of the circulatory system; Z79.01 Long term (current) use of anticoagulants; Z98.62 Peripheral vascular angioplasty status; Z68.29 Body mass index [BMI] 29.0-29.9, adult; Y92.89 Other specified places as the place of occurrence of the external cause; J12.82 Pneumonia due to coronavirus disease 2019; B94.8 Sequelae of other specified infectious and parasitic diseases; J81.1 Chronic pulmonary edema
CPT/HCPCS: 36415; 36600; 36906; 36907; 71045; 71250; 74018; 76700; 76937; 77001; 80048; 80053; 80061; 80202; 82375; 82728; 82805; 82962; 83036; 83540; 83550; 83605; 83880; 84145; 84443; 84484; 85025; 85379; 86706; 86850; 86900; 86920; 87070; 87340; 87426; 88304; 93005; 93306; 96374; 99152; 99153; 99285; C1725; C1766; C1768; C1769; C1876; C1884; C1893; C2630; J0885; J1200; J1642; J1644; J1815; J1956; J2250; J2270; J2405; J2795; J3010; J3370; J3490; J7030; J7050; J7060; P9016; Q0162; Q0163; Q9967; G0500

== ENCOUNTER 2020-08-23 08:49 | Emergency (ER) | payer OTHER ==
[~2020-08-23] VITALS: Ht 185.4 cm; Wt 80.0 kg
[~2020-08-23 08:49] MED LIST changes: +BENA10TA74 MT; +CARSR90 MT; +CARV12.545 MT; +CLON-457 MT; +FAMO20TA8 MT; +FURO40TA5 MT; +HYDR-4001 MT; -NIFE60TA78 MT
[2020-08-23 10:28] LABS: HEMATOCRIT. 30.1 % (42.0-52.0); HEMOGLOBIN. 9.6 g/dL (14.0-18.0); MEAN CORPUSCULAR HEMOGLOBIN 28.2 pg (28.0-32.0); MEAN CORPUSCULAR VOLUME 88.6 fL (80.0-94.0); MEAN PLATELET VOLUME 7.4 fl (7.4-10.4); PLATELET 300 x1000/uL (130-400); RED CELL DISTRIBUTION WIDTH 17.9 % (11.6-14.6)
[2020-08-23 10:35] LABS: CHLORIDE 92 mEq/L (98-107)
[2020-08-23 10:38] LABS: INR 1.1; PROTHROMBIN TIME 11.5 sec (9.6-11.0)
[2020-08-23] MEDS ORDERED: DEXTROSE 50% WATER 50ML SYRINGE IV ONE (10:45)
[2020-08-23] MEDS ORDERED: FUROSEMIDE 100MG/10ML VIAL IV STA (10:45)
[2020-08-23] MEDS ORDERED: SODIUM CHLORIDE 0.9% 250 ML IV ONE (10:45)
[2020-08-23] MEDS ORDERED: ALBUTEROL (0.083%) 2.5MG/3ML NEB HHN ONE (10:45)
[2020-08-23] MEDS ORDERED: CALCIUM CHLORIDE 1GM/10ML SYR IV ONE (10:45)
[2020-08-23] MEDS ORDERED: INSULIN REGULAR (HUMULIN R) 300UNITS/3ML VIAL IV ONE (10:45)
[2020-08-23 12:34] LABS: CHLORIDE 95 mEq/L (98-107)
[2020-08-23 13:54] LABS: PLATELET ESTIMATE NORMAL
[2020-08-23 14:10] LABS: CHLORIDE 94 mEq/L (98-107)
[2020-08-23] MEDS ORDERED: LIDOCAINE HCL 1% 20ML VIAL (Pyxis) INJ INFIL ONE (15:15)
[2020-08-23 15:36] VITALS: BP 167/84
== END 2020-08-23 15:42 | disposition home or self-care (01) ==
LOC: ER 08:49 → CANBEDREQ 16:41
DX: R07.89 Other chest pain (principal); E87.5 Hyperkalemia; I10 Essential (primary) hypertension; E11.9 Type 2 diabetes mellitus without complications; Z98.890 Other specified postprocedural states; Z88.0 Allergy status to penicillin; Z79.899 Other long term (current) drug therapy
CPT/HCPCS: 36415; 71045; 80053; 82962; 83880; 84484; 85025; 85610; 93005; 94644; 96374; 96375; 99285; J1815; J1940; J3490; J7050; Z7610

== ENCOUNTER 2020-09-28 11:37 | Emergency (ER) | payer OTHER ==
[~2020-09-28] VITALS: Ht 177.8 cm; Wt 88.0 kg
[2020-09-28 11:49] VITALS: BP 159/84
== END 2020-09-28 12:52 | disposition home or self-care (01) ==
LOC: ER 11:37
DX: Z48.02 Encounter for removal of sutures (principal); I12.0 Hypertensive chronic kidney disease with stage 5 chronic kidney disease or end stage renal disease; E11.22 Type 2 diabetes mellitus with diabetic chronic kidney disease; N18.6 End stage renal disease; Z99.2 Dependence on renal dialysis; Z79.899 Other long term (current) drug therapy; Z88.0 Allergy status to penicillin
CPT/HCPCS: 99281; Z7610

== ENCOUNTER 2020-10-22 06:37 | Emergency (ER) | payer OTHER ==
[~2020-10-22] VITALS: Ht 185.4 cm; Wt 65.0 kg
[2020-10-22 07:57] LABS: BASOPHILS % 0.6 % (0.0-2.0); EOSINOPHILS % 3.5 % (0.0-5.0); HEMATOCRIT. 27.3 % (42.0-52.0); HEMOGLOBIN. 8.8 g/dL (14.0-18.0); MEAN CORPUSCULAR HEMOGLOBIN 30.3 pg (28.0-32.0); MEAN CORPUSCULAR VOLUME 94.1 fL (80.0-94.0); MEAN PLATELET VOLUME 6.9 fl (7.4-10.4); MONOCYTES % 8.5 % (2.0-8.0); NEUTROPHILS % 72.4 % (40.0-76.0); PLATELET 302 x1000/uL (130-400); RED CELL DISTRIBUTION WIDTH 17.9 % (11.6-14.6)
[2020-10-22 08:06] LABS: CHLORIDE 90 mEq/L (98-107)
[2020-10-22 08:08] LABS: PROTHROMBIN TIME 10.9 sec (9.6-11.0)
[2020-10-22 10:13] VITALS: BP 169/84
== END 2020-10-22 10:40 | disposition left against medical advice (07) ==
LOC: ER 06:37
DX: I12.0 Hypertensive chronic kidney disease with stage 5 chronic kidney disease or end stage renal disease (principal); D53.9 Nutritional anemia, unspecified; E11.22 Type 2 diabetes mellitus with diabetic chronic kidney disease; N18.6 End stage renal disease; Z99.2 Dependence on renal dialysis; Z79.4 Long term (current) use of insulin
CPT/HCPCS: 36415; 71045; 80053; 85025; 93005; 99285

== ENCOUNTER 2022-01-09 14:58 | Emergency (ER) | payer OTHER ==
[~2022-01-09] VITALS: Ht 185.4 cm; Wt 81.0 kg
[2022-01-09 15:05] VITALS: BP 146/76
== END 2022-01-09 19:30 | disposition left against medical advice (07) ==
LOC: ER 14:58
DX: Z53.21 Procedure and treatment not carried out due to patient leaving prior to being seen by health care provider (principal)

== ENCOUNTER 2022-01-10 12:26 | Inpatient (IN) | payer OTHER ==
[~2022-01-10] VITALS: Ht 182.9 cm; Wt 78.2 kg
[2022-01-10 13:41] LABS: BASOPHILS % 0.7 % (0.0-2.0); LYMPHOCYTES % 9.7 % (20.0-50.0); MEAN CORPUSCULAR HEMOGLOBIN 28.4 pg (28.0-32.0); MEAN CORPUSCULAR VOLUME 88.6 fL (80.0-94.0); MEAN PLATELET VOLUME 6.9 fl (7.4-10.4); MONOCYTES % 6.1 % (2.0-8.0); NEUTROPHILS % 80.5 % (40.0-76.0); PLATELET 409 x1000/uL (130-400); RED BLOOD CELL COUNT 2.08 mill/uL (4.7-6.1); RED CELL DISTRIBUTION WIDTH 14.5 % (11.6-14.6)
[2022-01-10 13:58] LABS: CHLORIDE 93 mEq/L (98-107)
[2022-01-10 14:33] LABS: HEMATOCRIT. 18.4 % (42.0-52.0); HEMOGLOBIN. 5.9 g/dL (14.0-18.0)
[2022-01-10] MEDS ORDERED: DEXTROSE 50% WATER 50ML SYRINGE IV ONE (14:45)
[2022-01-10] MEDS ORDERED: INSULIN REGULAR (HUMULIN R) 300UNITS/3ML VIAL IV ONE (14:45)
[2022-01-10] MEDS ORDERED: ALBUTEROL (0.083%) 2.5MG/3ML NEB HHN ONE (14:45)
[2022-01-10] MEDS ORDERED: SODIUM BICARBONATE 8.4% 1 MEQ/ML 50ML SYR IV ONE (14:45)
[2022-01-10] MEDS ORDERED: CALCIUM CHLORIDE 1GM/10ML SYR IV ONE (14:45)
[2022-01-10] MEDS ORDERED: SODIUM POLYSTYRENE SULFONATE 15 G/60 ML BOT PO NR (15:15)
[2022-01-10] MEDS ORDERED: DIPHENHYDRAMINE 50MG/ML VIAL IV PRN (16:45)
[2022-01-10] MEDS ORDERED: IPRATROPIUM/ALBUTEROL 0.5-3(2.5)MG/3ML NEB HHN PRN (16:45)
[2022-01-10] MEDS ORDERED: GUAIFENESIN 200MG/10ML SUGAR FREE UDC PO PRN (16:45)
[2022-01-10] MEDS ORDERED: MAGNESIUM/ALUMINUM HYDROXIDE/SIMETHICONE 30ML UDC PO PRN (16:45)
[2022-01-10] MEDS ORDERED: ENOXAPARIN 40MG/0.4ML SYR SUBCUT SCH (16:45)
[2022-01-10] MEDS ORDERED: ACETAMINOPHEN 325MG TABLET PO PRN (16:45)
[2022-01-10] MEDS ORDERED: ONDANSETRON HCL 4MG/2ML INJ IV PRN (16:45)
[2022-01-10] MEDS ORDERED: CLONIDINE 0.1MG TABLET PO PRN (16:45)
[2022-01-10] MEDS ORDERED: MORPHINE SULFATE 2 MG/ML CPJ (NOT FOR IM USE) IV PRN (16:45)
[2022-01-10] MEDS ORDERED: DEXTROSE 50% WATER 50ML SYRINGE IV PRN (16:45)
[2022-01-10] MEDS ORDERED: DOCUSATE SODIUM 100MG CAPSULE PO PRN (16:45)
[2022-01-10] MEDS: BLOOD SUGAR DIAGNOSTIC STRIP TEST SCH ×2 (18:32→23:55)
[2022-01-10] MEDS: HYDRALAZINE 20MG/ML VIAL IV PRN (18:40)
[2022-01-10] MEDS: INSULIN LISPRO 100 UNITS/ML SUBCUT SCH ×2 (18:40→23:55)
[2022-01-10] MEDS ORDERED: LIDOCAINE HCL 1% 10 MG/ML 10ML VIAL ONE (20:17)
[2022-01-10] MEDS ORDERED: HEPARIN 1000 UNITS/ML 10ML ONE (20:19)
[2022-01-10] MEDS ORDERED: IRON SUCROSE COMPLEX 100 MG/5 ML ML IV NR (22:00)
[2022-01-10] MEDS ORDERED: EPOETIN ALFA 4000UNITS/ML VIAL SUBCUT NR (22:00)
[2022-01-10] MEDS: SODIUM CHLORIDE 0.9% INJ 3ML FLUSH IVF SCH (23:57)
[2022-01-11] VITALS: BP 156/69
[2022-01-11] MEDS: HYDROCODONE/ACETAMINOPHEN 5/325MG TABLET PO PRN ×2 (00:07→08:51)
[2022-01-11] MEDS: SODIUM CHLORIDE 0.9% INJ 3ML FLUSH IVF SCH (05:59)
[2022-01-11] MEDS: HYDRALAZINE 20MG/ML VIAL IV PRN (05:59)
[2022-01-11] MEDS: BLOOD SUGAR DIAGNOSTIC STRIP TEST SCH (06:11)
[2022-01-11] MEDS: INSULIN LISPRO 100 UNITS/ML SUBCUT SCH (06:11)
[2022-01-11 07:58] LABS: BASOPHILS % 0.8 % (0.0-2.0); EOSINOPHILS % 4.8 % (0.0-5.0); LYMPHOCYTES % 15.6 % (20.0-50.0); MEAN CORPUSCULAR HEMOGLOBIN 28.6 pg (28.0-32.0); MEAN CORPUSCULAR VOLUME 87.4 fL (80.0-94.0); MEAN PLATELET VOLUME 6.9 fl (7.4-10.4); NEUTROPHILS % 68.8 % (40.0-76.0); PLATELET 352 x1000/uL (130-400); RED BLOOD CELL COUNT 1.72 mill/uL (4.7-6.1); RED CELL DISTRIBUTION WIDTH 14.9 % (11.6-14.6)
[2022-01-11 08:00] VITALS: BP 117/55
[2022-01-11] MEDS ORDERED: EPOETIN ALFA 4000UNITS/ML VIAL SUBCUT NR (08:00)
[2022-01-11] MEDS ORDERED: IRON SUCROSE COMPLEX 100 MG/5 ML ML IV NR (08:00)
[2022-01-11 08:24] LABS: CHLORIDE 97 mEq/L (98-107)
[2022-01-11 08:37] LABS: HEMOGLOBIN. 4.9 g/dL (14.0-18.0)
[2022-01-11 08:51] VITALS: BP 117/55
[2022-01-11] MEDS ORDERED: NALOXONE HCL 0.4MG/ML VIAL IV PRN (15:00)
== END 2022-01-11 12:00 | disposition left against medical advice (07) | DRG 466 ==
LOC: ER 12:26 → 8WST 16:23 → EDBEDREQTM 21:42 → EDBEDREQSVC 21:42 → ENRESERV 22:59
PROVIDERS: ADMIT Internal Medicine; ATTEND Internal Medicine
PROC: 06H033Z Insertion of Infusion Device into Inferior Vena Cava, Percutaneous Approach (ICD-10-PCS; principal; 2022-01-10)
PROC: B5191ZA Fluoroscopy of Inferior Vena Cava using Low Osmolar Contrast, Guidance (ICD-10-PCS; 2022-01-10)
PROC: B549ZZA Ultrasonography of Inferior Vena Cava, Guidance (ICD-10-PCS; 2022-01-10)
PROC: 5A1D70Z Performance of Urinary Filtration, Intermittent, Less than 6 Hours Per Day (ICD-10-PCS; 2022-01-11)
DX: T82.41XA Breakdown (mechanical) of vascular dialysis catheter, initial encounter (principal); I12.0 Hypertensive chronic kidney disease with stage 5 chronic kidney disease or end stage renal disease; E11.22 Type 2 diabetes mellitus with diabetic chronic kidney disease; E87.1 Hypo-osmolality and hyponatremia; N18.6 End stage renal disease; D63.1 Anemia in chronic kidney disease; E78.00 Pure hypercholesterolemia, unspecified; Z20.822 Contact with and (suspected) exposure to COVID-19; E87.5 Hyperkalemia; Y84.1 Kidney dialysis as the cause of abnormal reaction of the patient, or of later complication, without mention of misadventure at the time of the procedure; Z99.2 Dependence on renal dialysis; Y92.89 Other specified places as the place of occurrence of the external cause; Z86.73 Personal history of transient ischemic attack (TIA), and cerebral infarction without residual deficits; Z88.0 Allergy status to penicillin; Z79.899 Other long term (current) drug therapy
CPT/HCPCS: 36415; 71045; 76937; 80048; 80053; 82962; 85025; 86850; 86900; 86920; 87426; 93005; 93970; 94640; 99291; C1752; C9803; J0360; J0885; J1644; J1815; J3490; L8514

== ENCOUNTER 2022-02-10 05:44 | Emergency (ER) | payer OTHER ==
[~2022-02-10] VITALS: Ht 185.4 cm; Wt 74.0 kg
[~2022-02-10 05:44] MED LIST changes: +ASCO500C18 PO; +ASCO500P18 PO; +ASPI81TA47 PO; +CALC667T6 PO; +DOCU-150 PO; +FERR325T6 PO; +GABA600T PO; +HYDR-4135 PO; +LIP40 PO; +LOPHC2 PO; +TIMO5DRO17 EACHEYE
[2022-02-10 05:49] VITALS: BP 144/69
[2022-02-10 07:30] LABS: EOSINOPHILS % 3.7 % (0.0-5.0); HEMATOCRIT. 26.5 % (42.0-52.0); HEMOGLOBIN. 8.3 g/dL (14.0-18.0); LYMPHOCYTES % 15.1 % (20.0-50.0); MEAN CORPUSCULAR HEMOGLOBIN 27.4 pg (28.0-32.0); MEAN CORPUSCULAR VOLUME 87.1 fL (80.0-94.0); MEAN PLATELET VOLUME 7.2 fl (7.4-10.4); MONOCYTES % 11.9 % (2.0-8.0); NEUTROPHILS % 68.3 % (40.0-76.0); PLATELET 287 x1000/uL (130-400); RED BLOOD CELL COUNT 3.04 mill/uL (4.7-6.1)
[2022-02-10 07:37] LABS: CHLORIDE 95 mEq/L (98-107)
== END 2022-02-10 10:13 | disposition left against medical advice (07) ==
LOC: ER 05:44
DX: T82.848A Pain due to vascular prosthetic devices, implants and grafts, initial encounter (principal); G89.18 Other acute postprocedural pain; Y82.8 Other medical devices associated with adverse incidents; Y92.89 Other specified places as the place of occurrence of the external cause; I12.0 Hypertensive chronic kidney disease with stage 5 chronic kidney disease or end stage renal disease; E11.22 Type 2 diabetes mellitus with diabetic chronic kidney disease; N18.6 End stage renal disease; Z99.2 Dependence on renal dialysis; Z79.84 Long term (current) use of oral hypoglycemic drugs; Z79.4 Long term (current) use of insulin; Z20.822 Contact with and (suspected) exposure to COVID-19
CPT/HCPCS: 36415; 80053; 85025; 87426; 99283; C9803

== ENCOUNTER 2022-02-17 09:13 | Emergency (ER) | payer OTHER ==
[~2022-02-17] VITALS: Ht 182.9 cm; Wt 80.0 kg
[2022-02-17 11:00] VITALS: BP 128/86
== END 2022-02-17 11:49 | disposition home or self-care (01) ==
LOC: ER 10:15
DX: M79.669 Pain in unspecified lower leg (principal); I12.0 Hypertensive chronic kidney disease with stage 5 chronic kidney disease or end stage renal disease; E11.22 Type 2 diabetes mellitus with diabetic chronic kidney disease; N18.6 End stage renal disease; Z99.2 Dependence on renal dialysis; E78.00 Pure hypercholesterolemia, unspecified
CPT/HCPCS: 99281

== ENCOUNTER 2022-02-26 06:58 | Emergency (ER) | payer OTHER, MEDICAID ==
[~2022-02-26] VITALS: Ht 182.9 cm; Wt 73.0 kg
[2022-02-26 09:57] LABS: HEMATOCRIT. 26.2 % (42.0-52.0); HEMOGLOBIN. 8.1 g/dL (14.0-18.0); MEAN CORPUSCULAR VOLUME 86.8 fL (80.0-94.0); MEAN PLATELET VOLUME 8.2 fl (7.4-10.4); PLATELET 146 x1000/uL (130-400); RED BLOOD CELL COUNT 3.02 mill/uL (4.7-6.1); RED CELL DISTRIBUTION WIDTH 17.2 % (11.6-14.6)
[2022-02-26 10:04] LABS: PROTHROMBIN TIME 10.9 sec (9.6-11.0)
[2022-02-26 11:20] LABS: PLATELET ESTIMATE NORMAL
[2022-02-26 12:20] VITALS: BP 181/91
== END 2022-02-26 12:50 | disposition short-term general hospital (02) ==
LOC: ER 07:36 → CANBEDREQ 10:49 → ER 12:50
DX: I72.1 Aneurysm of artery of upper extremity (principal); T82.41XA Breakdown (mechanical) of vascular dialysis catheter, initial encounter; T82.838A Hemorrhage due to vascular prosthetic devices, implants and grafts, initial encounter; I12.0 Hypertensive chronic kidney disease with stage 5 chronic kidney disease or end stage renal disease; N18.6 End stage renal disease; E11.22 Type 2 diabetes mellitus with diabetic chronic kidney disease; R42 Dizziness and giddiness; D64.9 Anemia, unspecified; E78.00 Pure hypercholesterolemia, unspecified; Z20.822 Contact with and (suspected) exposure to COVID-19; Y82.8 Other medical devices associated with adverse incidents; Z99.2 Dependence on renal dialysis; Y92.538 Other ambulatory health services establishments as the place of occurrence of the external cause
CPT/HCPCS: 36415; 80048; 85025; 85610; 87426; 99291; C9803

== ENCOUNTER 2022-03-29 07:24 | Emergency (ER) | payer MEDICAID, OTHER ==
[~2022-03-29] VITALS: Ht 182.9 cm; Wt 81.0 kg
[2022-03-29 08:28] LABS: BASOPHILS % 0.6 % (0.0-2.0); EOSINOPHILS % 1.9 % (0.0-5.0); HEMATOCRIT. 22.3 % (42.0-52.0); HEMOGLOBIN. 7.6 g/dL (14.0-18.0); LYMPHOCYTES % 10.4 % (20.0-50.0); MEAN CORPUSCULAR HEMOGLOBIN 28.7 pg (28.0-32.0); MEAN CORPUSCULAR VOLUME 84.4 fL (80.0-94.0); MEAN PLATELET VOLUME 7.5 fl (7.4-10.4); NEUTROPHILS % 78.1 % (40.0-76.0); PLATELET 212 x1000/uL (130-400); RED BLOOD CELL COUNT 2.64 mill/uL (4.7-6.1); RED CELL DISTRIBUTION WIDTH 17.8 % (11.6-14.6)
[2022-03-29 08:29] LABS: CHLORIDE 92 mEq/L (98-107)
[2022-03-29] MEDS ORDERED: LIDOCAINE HCL/PF 1% 10 MG/ML 5ML VIAL INFIL ONE (08:30)
[2022-03-29 08:45] LABS: PROTHROMBIN TIME 11.1 sec (9.6-11.0)
[2022-03-29] MEDS ORDERED: OXYCODONE HCL/ACETAMINOPHEN 5/325MG TABLET PO ONE (09:15)
[2022-03-29 09:40] VITALS: BP 158/83
== END 2022-03-29 09:40 | disposition home or self-care (01) ==
LOC: ER 07:49
DX: T82.838A Hemorrhage due to vascular prosthetic devices, implants and grafts, initial encounter (principal); Y82.8 Other medical devices associated with adverse incidents; I12.0 Hypertensive chronic kidney disease with stage 5 chronic kidney disease or end stage renal disease; I45.81 Long QT syndrome; E11.22 Type 2 diabetes mellitus with diabetic chronic kidney disease; N18.6 End stage renal disease; Z99.2 Dependence on renal dialysis; Y83.8 Other surgical procedures as the cause of abnormal reaction of the patient, or of later complication, without mention of misadventure at the time of the procedure; Y92.018 Other place in single-family (private) house as the place of occurrence of the external cause; Z79.84 Long term (current) use of oral hypoglycemic drugs
CPT/HCPCS: 36415; 80053; 85025; 85610; 86850; 86900; 86901; 93005; 99284; Z7610; J3490

== ENCOUNTER 2022-04-25 10:44 | Inpatient (IN) | payer OTHER ==
[~2022-04-25] VITALS: Ht 185.4 cm; Wt 76.7 kg
[2022-04-25 12:36] LABS: BASOPHILS % 0.5 % (0.0-2.0); EOSINOPHILS % 0.8 % (0.0-5.0); LYMPHOCYTES % 11.1 % (20.0-50.0); MEAN CORPUSCULAR VOLUME 87.2 fL (80.0-94.0); MEAN PLATELET VOLUME 7.5 fl (7.4-10.4); MONOCYTES % 7.5 % (2.0-8.0); NEUTROPHILS % 80.1 % (40.0-76.0); PLATELET 214 x1000/uL (130-400); RED BLOOD CELL COUNT 1.93 mill/uL (4.7-6.1); RED CELL DISTRIBUTION WIDTH 18.6 % (11.6-14.6)
[2022-04-25] MEDS ORDERED: LEVOFLOXACIN 750MG PREMIX 150 ML IV ONE (12:45)
[2022-04-25 13:19] LABS: HEMATOCRIT. 16.8 % (42.0-52.0); HEMOGLOBIN. 5.6 g/dL (14.0-18.0)
[2022-04-25 13:54] LABS: CHLORIDE 92 mEq/L (98-107)
[2022-04-25] MEDS ORDERED: HYDRALAZINE 20MG/ML VIAL IV SCH (20:20)
[2022-04-25] MEDS ORDERED: CLONIDINE 0.1MG TABLET PO SCH (20:30)
[2022-04-25 21:00] VITALS: BP 155/82
[2022-04-25 22:00] VITALS: BP 155/72
[2022-04-25] MEDS ORDERED: DIPHENHYDRAMINE 50MG CAPSULE PO PRN (23:00)
[2022-04-25] MEDS ORDERED: HYDROCODONE/ACETAMINOPHEN 5/325MG TABLET PO PRN (23:00)
[2022-04-25] MEDS ORDERED: IRON SUCROSE COMPLEX 100 MG/5 ML ML IV NR (23:30)
[2022-04-26] VITALS (8 sets, daily range): BP systolic 132–170; BP diastolic 68–90
[2022-04-26] MEDS ORDERED: EPOETIN ALFA-EPBX 4,000 UNIT/ML VIAL SUBCUT NR (01:00)
[2022-04-26] MEDS: SEVELAMER CARBONATE 800 MG TABLET PO SCH ×3 (07:11→17:18)
[2022-04-26 07:25] LABS: BASOPHILS % 0.6 % (0.0-2.0); LYMPHOCYTES % 14.9 % (20.0-50.0); MEAN CORPUSCULAR VOLUME 87.5 fL (80.0-94.0); MEAN PLATELET VOLUME 7.1 fl (7.4-10.4); MONOCYTES % 9.4 % (2.0-8.0); NEUTROPHILS % 72.1 % (40.0-76.0); PLATELET 225 x1000/uL (130-400); RED BLOOD CELL COUNT 1.79 mill/uL (4.7-6.1); RED CELL DISTRIBUTION WIDTH 18.2 % (11.6-14.6)
[2022-04-26 07:52] LABS: CHLORIDE 91 mEq/L (98-107)
[2022-04-26 08:02] LABS: PHOSPHORUS 4.3 mg/dL (2.5-4.9)
[2022-04-26 08:18] LABS: HEMATOCRIT. 15.6 % (42.0-52.0); HEMOGLOBIN. 5.2 g/dL (14.0-18.0)
[2022-04-26] MEDS: FUROSEMIDE 40MG TABLET PO SCH ×2 (08:39→21:40)
[2022-04-26] MEDS: GABAPENTIN 300MG CAPSULE PO SCH ×2 (08:39→17:18)
[2022-04-26] MEDS: DOCUSATE SODIUM 100MG CAPSULE PO SCH (08:39)
[2022-04-26] MEDS: FERROUS SULFATE 325MG TABLET PO SCH ×2 (08:39→17:18)
[2022-04-26] MEDS: LOSARTAN POTASSIUM 100 MG TABLET PO SCH (08:40)
[2022-04-26] MEDS: HYDRALAZINE HCL 100MG TABLET PO SCH ×2 (08:40→21:40)
[2022-04-26] MEDS: CARVEDILOL 12.5MG TABLET PO SCH ×2 (08:40→21:40)
[2022-04-26] MEDS ORDERED: MINOXIDIL 10MG TABLET PO ONE (09:00)
[2022-04-26] MEDS ORDERED: DILTIAZEM HCL 120MG CAPSULE ER 24HR PO SCH (09:00)
[2022-04-26] MEDS ORDERED: CLONIDINE 0.1MG TABLET PO PRN (11:45)
[2022-04-26] MEDS ORDERED: MAGNESIUM/ALUMINUM HYDROXIDE/SIMETHICONE 30ML UDC PO PRN (11:45)
[2022-04-26] MEDS ORDERED: ACETAMINOPHEN 325MG TABLET PO PRN (11:45)
[2022-04-26] MEDS ORDERED: ONDANSETRON HCL 4MG/2ML INJ IV PRN (11:45)
[2022-04-26] MEDS: BLOOD SUGAR DIAGNOSTIC STRIP TEST SCH ×3 (11:50→21:38)
[2022-04-26] MEDS ORDERED: NALOXONE HCL 0.4MG/ML VIAL IV PRN (12:00)
[2022-04-26] MEDS: AZITHROMYCIN 250 MG in DEXT 5% WATER 250 ML IV SCH (12:00)
[2022-04-26] MEDS ORDERED: DEXTROSE 50% WATER 50ML SYRINGE IV PRN ×2 (12:00)
[2022-04-26] MEDS: INSULIN LISPRO 100 UNITS/ML SUBCUT SCH ×3 (12:20→21:41)
[2022-04-26 19:42] LABS: TOTAL IRON BINDING CAPACITY 167 ug/dL (250-450)
[2022-04-26 20:49] LABS: VITAMIN B12 SERUM >2000 pg/mL pg/mL (211-911)
[2022-04-26 21:02] LABS: FOLIC ACID (FOLATE) SERUM > 20.00 ng/mL (>5.38)
[2022-04-26] MEDS: ATORVASTATIN CALCIUM 40MG TABLET PO SCH (21:40)
[2022-04-26] MEDS: ZOLPIDEM TARTRATE 5MG TABLET PO PRN (21:40)
[2022-04-26] MEDS: IRON SUCROSE COMPLEX 100 MG/5 ML ML IV SCH (21:48)
[2022-04-26 22:43] LABS: FERRITIN > 8250 ng/mL (22-322)
[2022-04-26] MEDS ORDERED: IRON SUCROSE COMPLEX 100 MG/5 ML ML IV SCH (23:30)
[2022-04-27] VITALS (8 sets, daily range): BP systolic 118–162; BP diastolic 55–92
[2022-04-27] MEDS: BLOOD SUGAR DIAGNOSTIC STRIP TEST SCH ×4 (06:50→21:31)
[2022-04-27] MEDS: INSULIN LISPRO 100 UNITS/ML SUBCUT SCH ×4 (07:20→21:00)
[2022-04-27 07:29] LABS: BASOPHILS % 0.5 % (0.0-2.0); EOSINOPHILS % 4.1 % (0.0-5.0); MEAN CORPUSCULAR VOLUME 87.4 fL (80.0-94.0); MEAN PLATELET VOLUME 6.9 fl (7.4-10.4); NEUTROPHILS % 73.4 % (40.0-76.0); PLATELET 235 x1000/uL (130-400); RED BLOOD CELL COUNT 1.62 mill/uL (4.7-6.1); RED CELL DISTRIBUTION WIDTH 18.5 % (11.6-14.6)
[2022-04-27 08:10] LABS: CHLORIDE 91 mEq/L (98-107)
[2022-04-27 08:48] LABS: HDL CHOLESTEROL 29 mg/dL (40-59); HEMATOCRIT. 14.2 % (42.0-52.0); HEMOGLOBIN. 4.7 g/dL (14.0-18.0); LDL CHOLESTEROL 40 mg/dL (5-100); PHOSPHORUS 4.9 mg/dL (2.5-4.9); T4 FREE 1.36 ng/dL (0.76-1.46)
[2022-04-27] MEDS: CARVEDILOL 12.5MG TABLET PO SCH ×2 (09:37→21:31)
[2022-04-27] MEDS: DOCUSATE SODIUM 100MG CAPSULE PO SCH (09:37)
[2022-04-27] MEDS: HYDRALAZINE HCL 100MG TABLET PO SCH ×2 (09:37→21:32)
[2022-04-27] MEDS: DILTIAZEM HCL 90MG TABLET PO SCH (09:37)
[2022-04-27] MEDS: LOSARTAN POTASSIUM 100 MG TABLET PO SCH (09:37)
[2022-04-27] MEDS: PANTOPRAZOLE SODIUM 40 MG/VIAL IV SCH (09:37)
[2022-04-27] MEDS: GABAPENTIN 300MG CAPSULE PO SCH ×2 (09:38→16:35)
[2022-04-27] MEDS: FUROSEMIDE 40MG TABLET PO SCH ×2 (09:38→21:32)
[2022-04-27] MEDS: SEVELAMER CARBONATE 800 MG TABLET PO SCH ×3 (09:42→16:35)
[2022-04-27] MEDS: AZITHROMYCIN 250 MG in DEXT 5% WATER 250 ML IV SCH (12:19)
[2022-04-27] MEDS ORDERED: EPOETIN ALFA-EPBX 4,000 UNIT/ML VIAL SUBCUT NR (13:00)
[2022-04-27] MEDS: HYDROCODONE/ACETAMINOPHEN 5/325MG TABLET PO PRN (14:25)
[2022-04-27] MEDS: ZOLPIDEM TARTRATE 5MG TABLET PO PRN (21:32)
[2022-04-27] MEDS: ATORVASTATIN CALCIUM 40MG TABLET PO SCH (21:32)
[2022-04-27] MEDS: IRON SUCROSE COMPLEX 100 MG/5 ML ML IV SCH (21:32)
[2022-04-28] VITALS (14 sets, daily range): BP systolic 130–159; BP diastolic 65–92
[2022-04-28] MEDS ORDERED: EPOETIN ALFA-EPBX 4,000 UNIT/ML VIAL SUBCUT NR (03:00)
[2022-04-28 05:57] LABS: BASOPHILS % 0.6 % (0.0-2.0); EOSINOPHILS % 4.3 % (0.0-5.0); LYMPHOCYTES % 14.5 % (20.0-50.0); MEAN CORPUSCULAR HEMOGLOBIN 29.5 pg (28.0-32.0); MEAN CORPUSCULAR VOLUME 86.7 fL (80.0-94.0); MEAN PLATELET VOLUME 6.4 fl (7.4-10.4); MONOCYTES % 10.4 % (2.0-8.0); NEUTROPHILS % 70.2 % (40.0-76.0); PLATELET 235 x1000/uL (130-400); RED BLOOD CELL COUNT 1.55 mill/uL (4.7-6.1); RED CELL DISTRIBUTION WIDTH 18.2 % (11.6-14.6)
[2022-04-28 05:58] LABS: CHLORIDE 87 mEq/L (98-107)
[2022-04-28 06:19] LABS: PHOSPHORUS 4.8 mg/dL (2.5-4.9)
[2022-04-28 06:47] LABS: HEMATOCRIT. 13.4 % (42.0-52.0); HEMOGLOBIN. 4.6 g/dL (14.0-18.0)
[2022-04-28] MEDS: BLOOD SUGAR DIAGNOSTIC STRIP TEST SCH ×4 (06:50→21:00)
[2022-04-28] MEDS: INSULIN LISPRO 100 UNITS/ML SUBCUT SCH ×4 (07:00→21:00)
[2022-04-28] MEDS: SEVELAMER CARBONATE 800 MG TABLET PO SCH ×3 (08:50→17:47)
[2022-04-28] MEDS: PANTOPRAZOLE SODIUM 40 MG/VIAL IV SCH (08:50)
[2022-04-28] MEDS: GABAPENTIN 300MG CAPSULE PO SCH ×2 (08:51→17:43)
[2022-04-28] MEDS: DOCUSATE SODIUM 100MG CAPSULE PO SCH (08:51)
[2022-04-28] MEDS: FUROSEMIDE 40MG TABLET PO SCH ×2 (08:52→21:24)
[2022-04-28] MEDS: LOSARTAN POTASSIUM 100 MG TABLET PO SCH (08:58)
[2022-04-28] MEDS: HYDRALAZINE HCL 100MG TABLET PO SCH ×2 (08:58→21:24)
[2022-04-28] MEDS: DILTIAZEM HCL 90MG TABLET PO SCH (08:59)
[2022-04-28] MEDS: CARVEDILOL 12.5MG TABLET PO SCH ×2 (08:59→21:24)
[2022-04-28 12:19] LABS: PROTHROMBIN TIME 11.2 sec (9.6-11.0)
[2022-04-28 16:15] LABS: HEPATITIS B SURFACE ANTIGEN NEGATIVE
[2022-04-28] MEDS: AZITHROMYCIN 250 MG in DEXT 5% WATER 250 ML IV SCH (17:43)
[2022-04-28] MEDS: HYDROCODONE/ACETAMINOPHEN 5/325MG TABLET PO PRN ×2 (17:45→21:29)
[2022-04-28] MEDS: ZOLPIDEM TARTRATE 5MG TABLET PO PRN (21:23)
[2022-04-28] MEDS: ATORVASTATIN CALCIUM 40MG TABLET PO SCH (21:24)
[2022-04-29] VITALS (8 sets, daily range): BP systolic 142–175; BP diastolic 73–96
[2022-04-29] MEDS: BLOOD SUGAR DIAGNOSTIC STRIP TEST SCH ×4 (06:45→20:42)
[2022-04-29] MEDS: SEVELAMER CARBONATE 800 MG TABLET PO SCH ×3 (06:45→17:46)
[2022-04-29 06:57] LABS: BASOPHILS % 0.7 % (0.0-2.0); EOSINOPHILS % 4.1 % (0.0-5.0); HEMATOCRIT. 23.1 % (42.0-52.0); HEMOGLOBIN. 7.9 g/dL (14.0-18.0); LYMPHOCYTES % 16.6 % (20.0-50.0); MEAN CORPUSCULAR HEMOGLOBIN 29.6 pg (28.0-32.0); MEAN CORPUSCULAR VOLUME 86.9 fL (80.0-94.0); MEAN PLATELET VOLUME 6.4 fl (7.4-10.4); MONOCYTES % 11.1 % (2.0-8.0); NEUTROPHILS % 67.5 % (40.0-76.0); PLATELET 269 x1000/uL (130-400); RED BLOOD CELL COUNT 2.66 mill/uL (4.7-6.1); RED CELL DISTRIBUTION WIDTH 16.4 % (11.6-14.6)
[2022-04-29] MEDS: INSULIN LISPRO 100 UNITS/ML SUBCUT SCH ×4 (07:20→20:43)
[2022-04-29] MEDS: GABAPENTIN 300MG CAPSULE PO SCH ×2 (09:44→17:46)
[2022-04-29] MEDS: PANTOPRAZOLE SODIUM 40 MG/VIAL IV SCH ×2 (09:44→20:42)
[2022-04-29] MEDS: HYDRALAZINE HCL 100MG TABLET PO SCH ×2 (09:44→20:43)
[2022-04-29] MEDS: DOCUSATE SODIUM 100MG CAPSULE PO SCH (09:44)
[2022-04-29] MEDS: CARVEDILOL 12.5MG TABLET PO SCH ×2 (09:45→20:42)
[2022-04-29] MEDS: DILTIAZEM HCL 90MG TABLET PO SCH (09:45)
[2022-04-29] MEDS: FUROSEMIDE 40MG TABLET PO SCH ×2 (09:45→20:42)
[2022-04-29] MEDS: LOSARTAN POTASSIUM 100 MG TABLET PO SCH (09:45)
[2022-04-29] MEDS: AZITHROMYCIN 250 MG in DEXT 5% WATER 250 ML IV SCH (12:38)
[2022-04-29] MEDS: HYDROCODONE/ACETAMINOPHEN 5/325MG TABLET PO PRN (19:47)
[2022-04-29] MEDS: ZOLPIDEM TARTRATE 5MG TABLET PO PRN (19:47)
[2022-04-29] MEDS: ATORVASTATIN CALCIUM 40MG TABLET PO SCH (20:42)
[2022-04-30] VITALS (8 sets, daily range): BP systolic 141–208; BP diastolic 77–99
[2022-04-30] MEDS ORDERED: EPOETIN ALFA-EPBX 4,000 UNIT/ML VIAL SUBCUT NR (00:30)
[2022-04-30] MEDS ORDERED: EPOETIN ALFA 4000UNITS/ML VIAL SUBCUT NR (00:45)
[2022-04-30 03:13] LABS: BASOPHILS % 0.6 % (0.0-2.0); EOSINOPHILS % 2.9 % (0.0-5.0); HEMATOCRIT. 23.8 % (42.0-52.0); HEMOGLOBIN. 8.5 g/dL (14.0-18.0); MEAN CORPUSCULAR HEMOGLOBIN 30.5 pg (28.0-32.0); MEAN CORPUSCULAR VOLUME 85.9 fL (80.0-94.0); MEAN PLATELET VOLUME 6.4 fl (7.4-10.4); MONOCYTES % 9.4 % (2.0-8.0); NEUTROPHILS % 73.1 % (40.0-76.0); PLATELET 272 x1000/uL (130-400); RED BLOOD CELL COUNT 2.77 mill/uL (4.7-6.1)
[2022-04-30 03:30] LABS: INR 1.1; PROTHROMBIN TIME 11.4 sec (9.6-11.0)
[2022-04-30] MEDS: INSULIN LISPRO 100 UNITS/ML SUBCUT SCH ×4 (06:20→22:58)
[2022-04-30] MEDS: BLOOD SUGAR DIAGNOSTIC STRIP TEST SCH ×4 (06:20→21:00)
[2022-04-30] MEDS: SEVELAMER CARBONATE 800 MG TABLET PO SCH ×3 (07:20→19:08)
[2022-04-30] MEDS ORDERED: THROMBIN (BOVINE) 5000 UNITS/VIAL TOP ONE (07:40)
[2022-04-30] MEDS ORDERED: LIDOCAINE HCL 1% 10 MG/ML 10ML VIAL ONE (07:40)
[2022-04-30] MEDS ORDERED: HEPARIN SODIUM 1,000 UNIT/1ML VIAL IV ONE (07:40)
[2022-04-30] MEDS ORDERED: BUPIVACAINE HCL/PF 0.5% (5MG/ML) 10ML ONE (07:40)
[2022-04-30] MEDS ORDERED: POLYMYXIN B SULFATE 500000 UNITS/VIAL ONE (07:40)
[2022-04-30] MEDS: DOCUSATE SODIUM 100MG CAPSULE PO SCH (08:22)
[2022-04-30] MEDS: GABAPENTIN 300MG CAPSULE PO SCH ×2 (08:22→19:08)
[2022-04-30] MEDS: DILTIAZEM HCL 90MG TABLET PO SCH (08:36)
[2022-04-30] MEDS: LOSARTAN POTASSIUM 100 MG TABLET PO SCH (08:36)
[2022-04-30] MEDS: FUROSEMIDE 40MG TABLET PO SCH ×2 (08:36→22:59)
[2022-04-30] MEDS: HYDRALAZINE HCL 100MG TABLET PO SCH ×2 (08:36→23:00)
[2022-04-30] MEDS: PANTOPRAZOLE SODIUM 40 MG/VIAL IV SCH ×2 (08:37→22:59)
[2022-04-30] MEDS: IRON SUCROSE COMPLEX 100 MG/5 ML ML IV SCH (08:37)
[2022-04-30] MEDS: CARVEDILOL 12.5MG TABLET PO SCH ×2 (08:37→23:00)
[2022-04-30] MEDS: HYDRALAZINE 20MG/ML VIAL IV PRN (12:03)
[2022-04-30] MEDS: AZITHROMYCIN 250 MG in DEXT 5% WATER 250 ML IV SCH (12:03)
[2022-04-30] MEDS ORDERED: HYDROMORPHONE HCL/PF 2MG/ML CPJ IV PRN (16:00)
[2022-04-30] MEDS ORDERED: MEPERIDINE HCL/PF 25MG/ML CPJ IV PRN (16:00)
[2022-04-30] MEDS ORDERED: LABETALOL 5MG/ML SYR 20 MG/4 ML SYRINGE IV PRN (16:00)
[2022-04-30] MEDS ORDERED: MORPHINE SULFATE 4 MG/ML CPJ (NOT FOR IM USE) IV PRN (16:00)
[2022-04-30] MEDS ORDERED: ONDANSETRON HCL 4MG/2ML INJ IV PRN (16:00)
[2022-04-30] MEDS ORDERED: PROPOFOL 200MG/20ML VIAL IV ONE (16:05)
[2022-04-30] MEDS ORDERED: LIDOCAINE HCL 1% 20ML VIAL (Pyxis) INJ ONE (16:05)
[2022-04-30] MEDS ORDERED: FENTANYL CITRATE/PF 50MCG/ML 2ML VIAL ONE (16:06)
[2022-04-30] MEDS ORDERED: MIDAZOLAM HCL 2 MG/2 ML VIAL ONE ×2 (16:06→16:07)
[2022-04-30] MEDS ORDERED: CLINDAMYCIN 900 MG PREMIX 50 ML IV ONE (16:21)
[2022-04-30] MEDS ORDERED: BACITRACIN 15GM TUBE TOP ONE (16:43)
[2022-04-30] MEDS: HYDROCODONE/ACETAMINOPHEN 5/325MG TABLET PO PRN (19:09)
[2022-04-30] MEDS: ATORVASTATIN CALCIUM 40MG TABLET PO SCH (22:59)
[2022-05-01] VITALS: BP 132/74
[2022-05-01] MEDS: HYDROCODONE/ACETAMINOPHEN 5/325MG TABLET PO PRN ×2 (00:10→07:58)
[2022-05-01 04:00] VITALS: BP 174/49
[2022-05-01] MEDS: HYDRALAZINE 20MG/ML VIAL IV PRN (06:17)
[2022-05-01] MEDS: BLOOD SUGAR DIAGNOSTIC STRIP TEST SCH ×4 (06:57→21:29)
[2022-05-01] MEDS: INSULIN LISPRO 100 UNITS/ML SUBCUT SCH ×4 (07:20→21:00)
[2022-05-01 07:25] LABS: HEMATOCRIT. 25.1 % (42.0-52.0); HEMOGLOBIN. 8.4 g/dL (14.0-18.0); MEAN CORPUSCULAR HEMOGLOBIN 29.6 pg (28.0-32.0); MEAN CORPUSCULAR VOLUME 87.8 fL (80.0-94.0); MEAN PLATELET VOLUME 6.7 fl (7.4-10.4); PLATELET 290 x1000/uL (130-400); RED BLOOD CELL COUNT 2.86 mill/uL (4.7-6.1); RED CELL DISTRIBUTION WIDTH 16.3 % (11.6-14.6)
[2022-05-01 07:33] LABS: PROTHROMBIN TIME 11.2 sec (9.6-11.0)
[2022-05-01 07:45] VITALS: BP 149/53
[2022-05-01] MEDS: FUROSEMIDE 40MG TABLET PO SCH ×2 (07:50→21:21)
[2022-05-01] MEDS: IRON SUCROSE COMPLEX 100 MG/5 ML ML IV SCH (07:50)
[2022-05-01] MEDS: DILTIAZEM HCL 90MG TABLET PO SCH (07:50)
[2022-05-01] MEDS: CARVEDILOL 12.5MG TABLET PO SCH ×2 (07:50→21:22)
[2022-05-01] MEDS: LOSARTAN POTASSIUM 100 MG TABLET PO SCH (07:50)
[2022-05-01] MEDS: HYDRALAZINE HCL 100MG TABLET PO SCH ×2 (07:51→21:22)
[2022-05-01] MEDS: PANTOPRAZOLE SODIUM 40 MG/VIAL IV SCH ×2 (07:51→21:21)
[2022-05-01] MEDS ORDERED: PROPOFOL 200MG/20ML VIAL IV ONE (09:02)
[2022-05-01 11:53] VITALS: BP 141/73
[2022-05-01] MEDS: SEVELAMER CARBONATE 800 MG TABLET PO SCH ×3 (12:20→18:08)
[2022-05-01] MEDS: AZITHROMYCIN 250 MG in DEXT 5% WATER 250 ML IV SCH (13:19)
[2022-05-01] MEDS: GABAPENTIN 300MG CAPSULE PO SCH ×2 (13:19→18:08)
[2022-05-01] MEDS: DOCUSATE SODIUM 100MG CAPSULE PO SCH (13:19)
[2022-05-01 14:37] LABS: PLATELET ESTIMATE NORMAL
[2022-05-01 15:35] VITALS: BP 150/93
[2022-05-01] MEDS ORDERED: SODIUM POLYSTYRENE SULFONATE 15 G/60 ML BOT PO NR (19:00)
[2022-05-01 20:00] VITALS: BP 175/91
[2022-05-01] MEDS ORDERED: ZOLPIDEM TARTRATE 5MG TABLET PO PRN (20:15)
[2022-05-01] MEDS: ATORVASTATIN CALCIUM 40MG TABLET PO SCH (21:36)
[2022-05-02] VITALS (14 sets, daily range): BP systolic 125–255; BP diastolic 57–100
[2022-05-02] MEDS: HYDRALAZINE 20MG/ML VIAL IV PRN ×2 (04:38→12:16)
[2022-05-02] MEDS: BLOOD SUGAR DIAGNOSTIC STRIP TEST SCH ×2 (06:59→12:22)
[2022-05-02 07:07] LABS: BASOPHILS % 0.2 % (0.0-2.0); EOSINOPHILS % 0.7 % (0.0-5.0); HEMATOCRIT. 22.5 % (42.0-52.0); HEMOGLOBIN. 7.6 g/dL (14.0-18.0); LYMPHOCYTES % 12.3 % (20.0-50.0); MEAN CORPUSCULAR HEMOGLOBIN 29.9 pg (28.0-32.0); MEAN CORPUSCULAR VOLUME 88.8 fL (80.0-94.0); MEAN PLATELET VOLUME 6.5 fl (7.4-10.4); MONOCYTES % 8.9 % (2.0-8.0); NEUTROPHILS % 77.9 % (40.0-76.0); PLATELET 280 x1000/uL (130-400); RED BLOOD CELL COUNT 2.53 mill/uL (4.7-6.1); RED CELL DISTRIBUTION WIDTH 17.4 % (11.6-14.6)
[2022-05-02] MEDS: INSULIN LISPRO 100 UNITS/ML SUBCUT SCH ×2 (07:20→12:20)
[2022-05-02] MEDS: SEVELAMER CARBONATE 800 MG TABLET PO SCH ×2 (07:20→12:23)
[2022-05-02] MEDS: GABAPENTIN 300MG CAPSULE PO SCH (09:00)
[2022-05-02] MEDS: PANTOPRAZOLE SODIUM 40 MG/VIAL IV SCH (09:00)
[2022-05-02] MEDS: FUROSEMIDE 40MG TABLET PO SCH (10:31)
[2022-05-02] MEDS: LOSARTAN POTASSIUM 100 MG TABLET PO SCH (10:32)
[2022-05-02] MEDS: HYDRALAZINE HCL 100MG TABLET PO SCH (10:32)
[2022-05-02] MEDS: DILTIAZEM HCL 90MG TABLET PO SCH (10:32)
[2022-05-02] MEDS: DOCUSATE SODIUM 100MG CAPSULE PO SCH (10:32)
[2022-05-02] MEDS: CARVEDILOL 12.5MG TABLET PO SCH (10:32)
[2022-05-02] MEDS ORDERED: LIDOCAINE HCL/PF 1% 10 MG/ML 5ML VIAL ONE ×2 (10:46)
[2022-05-02] MEDS ORDERED: OMEP40CA20 MT (10:48)
[2022-05-02] MEDS ORDERED: FENTANYL CITRATE/PF 50MCG/ML 2ML VIAL ONE (10:50)
[2022-05-02] MEDS ORDERED: MIDAZOLAM HCL 2 MG/2 ML VIAL ONE (11:19)
[2022-05-02] MEDS: FENTANYL CITRATE/PF 50MCG/ML 2ML VIAL IV NR ×5 (12:11→12:15)
[2022-05-02] MEDS: MIDAZOLAM HCL 5 MG/ML VIAL IV NR ×2 (12:11→12:13)
[2022-05-02] MEDS ORDERED: MINOXIDIL 2.5MG TABLET PO NR (13:15)
[2022-05-02] MEDS ORDERED: EPOETIN ALFA-EPBX 4,000 UNIT/ML VIAL SUBCUT SCH (21:00)
[2022-05-02] MEDS ORDERED: MINOXIDIL 2.5MG TABLET PO SCH (21:00)
== END 2022-05-02 15:24 | disposition home or self-care (01) | DRG 444 ==
LOC: ER 10:44 → 3WST 18:48 → EDBEDREQTM 18:50 → EDBEDREQ 18:50 → ENRESERV 19:16 → ER 21:19
PROVIDERS: ADMIT Internal Medicine; ATTEND Internal Medicine
PROC: 30233N1 Transfusion of Nonautologous Red Blood Cells into Peripheral Vein, Percutaneous Approach (ICD-10-PCS; 2022-04-28)
PROC: 5A1D70Z Performance of Urinary Filtration, Intermittent, Less than 6 Hours Per Day (ICD-10-PCS; 2022-04-28)
PROC: 03170ZD Bypass Right Brachial Artery to Upper Arm Vein, Open Approach (ICD-10-PCS; principal; 2022-04-30)
PROC: 5A1D70Z Performance of Urinary Filtration, Intermittent, Less than 6 Hours Per Day (ICD-10-PCS; 2022-04-30)
PROC: 0DB78ZX Excision of Stomach, Pylorus, Via Natural or Artificial Opening Endoscopic, Diagnostic (ICD-10-PCS; 2022-05-01)
PROC: 0JH63XZ Insertion of Tunneled Vascular Access Device into Chest Subcutaneous Tissue and Fascia, Percutaneous Approach (ICD-10-PCS; 2022-05-02)
PROC: 02HV33Z Insertion of Infusion Device into Superior Vena Cava, Percutaneous Approach (ICD-10-PCS; 2022-05-02)
PROC: B548ZZA Ultrasonography of Superior Vena Cava, Guidance (ICD-10-PCS; 2022-05-02)
PROC: B5181ZA Fluoroscopy of Superior Vena Cava using Low Osmolar Contrast, Guidance (ICD-10-PCS; 2022-05-02)
PROC: 5A1D70Z Performance of Urinary Filtration, Intermittent, Less than 6 Hours Per Day (ICD-10-PCS; 2022-05-02)
PROC: 02PAX3Z Removal of Infusion Device from Heart, External Approach (ICD-10-PCS; 2022-05-02)
DX: I12.0 Hypertensive chronic kidney disease with stage 5 chronic kidney disease or end stage renal disease (principal); J96.90 Respiratory failure, unspecified, unspecified whether with hypoxia or hypercapnia; J18.9 Pneumonia, unspecified organism; E87.1 Hypo-osmolality and hyponatremia; D63.1 Anemia in chronic kidney disease; N18.6 End stage renal disease; E11.22 Type 2 diabetes mellitus with diabetic chronic kidney disease; I48.92 Unspecified atrial flutter; E11.51 Type 2 diabetes mellitus with diabetic peripheral angiopathy without gangrene; E11.319 Type 2 diabetes mellitus with unspecified diabetic retinopathy without macular edema; D64.9 Anemia, unspecified; E87.5 Hyperkalemia; K29.70 Gastritis, unspecified, without bleeding; E78.5 Hyperlipidemia, unspecified; K21.9 Gastro-esophageal reflux disease without esophagitis; Z99.2 Dependence on renal dialysis; Z98.62 Peripheral vascular angioplasty status; Z88.0 Allergy status to penicillin
CPT/HCPCS: 36415; 36558; 36589; 71045; 76937; 77001; 80048; 80053; 80061; 80076; 82607; 82728; 82746; 82962; 83036; 83540; 83550; 83735; 83880; 84100; 84145; 84439; 84443; 84484; 85025; 85044; 86705; 86709; 86803; 86850; 86900; 86920; 87340; 87426; 87804; 88305; 90935; 93005; 93306; 93970; 97162; 99152; 99153; 99285; C1750; C1769; C9113; C9803; J0360; J0456; J0885; J1644; J1815; J1956; J2250; J2270; J2405; J2704; J3010; J3490; J7030; J7060; P9016; G0500

== ENCOUNTER 2022-07-13 08:04 | Emergency (ER) | payer OTHER ==
[~2022-07-13] VITALS: Ht 167.6 cm; Wt 81.0 kg
[~2022-07-13 08:04] MED LIST changes: -ASPI81TA47 PO; +OMEP40CA20 MT
[2022-07-13 08:11] VITALS: BP 157/52
[2022-07-13 10:17] LABS: BASOPHILS % 0.5 % (0.0-2.0); EOSINOPHILS % 2.5 % (0.0-5.0); LYMPHOCYTES % 10.7 % (20.0-50.0); MEAN CORPUSCULAR HEMOGLOBIN 31.1 pg (28.0-32.0); MEAN CORPUSCULAR VOLUME 94.7 fL (80.0-94.0); MEAN PLATELET VOLUME 7.1 fl (7.4-10.4); MONOCYTES % 9.7 % (2.0-8.0); NEUTROPHILS % 76.6 % (40.0-76.0); PLATELET 254 x1000/uL (130-400); RED BLOOD CELL COUNT 2.07 mill/uL (4.7-6.1); RED CELL DISTRIBUTION WIDTH 17.9 % (11.6-14.6)
[2022-07-13 10:28] LABS: HEMATOCRIT. 19.6 % (42.0-52.0); HEMOGLOBIN. 6.4 g/dL (14.0-18.0)
[2022-07-13 10:42] LABS: INR 1.1; PARTIAL THROMBOPLASTIN TIME 27.7 sec (23.4-31.0); PROTHROMBIN TIME 11.5 sec (9.6-11.0)
[2022-07-13] MEDS ORDERED: LIDOCAINE HCL 1% 10 MG/ML 10ML VIAL ONE (11:04)
== END 2022-07-13 12:30 | disposition home or self-care (01) ==
LOC: ER 08:04
DX: D64.9 Anemia, unspecified (principal); N18.6 End stage renal disease; Z45.2 Encounter for adjustment and management of vascular access device; Z20.822 Contact with and (suspected) exposure to COVID-19; Z88.0 Allergy status to penicillin; Z79.899 Other long term (current) drug therapy; Z86.39 Personal history of other endocrine, nutritional and metabolic disease
CPT/HCPCS: 36415; 36589; 85025; 85610; 85730; 86850; 86900; 86901; 87426; 99284; C9803; J3490

== ENCOUNTER 2022-07-19 07:22 | Emergency (ER) | payer MEDICAID, OTHER ==
[~2022-07-19] VITALS: Ht 170.2 cm; Wt 78.0 kg
[2022-07-19 08:04] VITALS: BP 116/94
[2022-07-19 12:17] LABS: CHLORIDE 92 mEq/L (98-107)
[2022-07-19 12:22] LABS: BASOPHILS % 0.8 % (0.0-2.0); EOSINOPHILS % 2.7 % (0.0-5.0); LYMPHOCYTES % 11.9 % (20.0-50.0); MEAN CORPUSCULAR HEMOGLOBIN 31.1 pg (28.0-32.0); MEAN CORPUSCULAR VOLUME 93.8 fL (80.0-94.0); MEAN PLATELET VOLUME 7.6 fl (7.4-10.4); MONOCYTES % 8.5 % (2.0-8.0); NEUTROPHILS % 76.1 % (40.0-76.0); PLATELET 251 x1000/uL (130-400); RED BLOOD CELL COUNT 2.21 mill/uL (4.7-6.1); RED CELL DISTRIBUTION WIDTH 16.2 % (11.6-14.6)
[2022-07-19 12:24] LABS: HEMATOCRIT. 20.7 % (42.0-52.0); HEMOGLOBIN. 6.9 g/dL (14.0-18.0)
== END 2022-07-19 12:48 | disposition left against medical advice (07) ==
LOC: ER 07:22 → CANBEDREQ 07-20 11:39
DX: D64.89 Other specified anemias (principal); I13.2 Hypertensive heart and chronic kidney disease with heart failure and with stage 5 chronic kidney disease, or end stage renal disease; N18.6 End stage renal disease; I50.9 Heart failure, unspecified; Z99.2 Dependence on renal dialysis
CPT/HCPCS: 36415; 80053; 85025; 85044; 86850; 86900; 99283

== ENCOUNTER 2022-08-30 10:51 | Emergency (ER) | payer MEDICAID ==
[2022-08-30] VITALS (11 sets, daily range): BP systolic 164–190; BP diastolic 78–84
[~2022-08-30] VITALS: Ht 182.9 cm; Wt 71.0 kg
[2022-08-30] MEDS ORDERED: CLINDAMYCIN 600 MG in DEXTROSE 5% WATER 50 ML IV NR (12:00)
[2022-08-30] MEDS ORDERED: ALTEPLASE 2MG/VIAL ITC NR (12:00)
[2022-08-30] MEDS ORDERED: IOHEXOL-300 100 ML BOTTLE ONE (12:21)
[2022-08-30] MEDS ORDERED: HEPARIN 1000 UNITS/ML 10ML ONE (12:21)
[2022-08-30] MEDS ORDERED: LIDOCAINE HCL 1% 10 MG/ML 10ML VIAL ONE (12:21)
[2022-08-30 12:28] LABS: BASOPHILS % 0.5 % (0.0-2.0); EOSINOPHILS % 1.5 % (0.0-5.0); HEMATOCRIT. 23.3 % (42.0-52.0); HEMOGLOBIN. 7.7 g/dL (14.0-18.0); LYMPHOCYTES % 9.8 % (20.0-50.0); MEAN CORPUSCULAR HEMOGLOBIN 29.3 pg (28.0-32.0); MEAN CORPUSCULAR VOLUME 89.3 fL (80.0-94.0); MEAN PLATELET VOLUME 6.9 fl (7.4-10.4); NEUTROPHILS % 79.2 % (40.0-76.0); PLATELET 207 x1000/uL (130-400); RED BLOOD CELL COUNT 2.61 mill/uL (4.7-6.1); RED CELL DISTRIBUTION WIDTH 15.3 % (11.6-14.6)
[2022-08-30 12:35] LABS: CHLORIDE 97 mEq/L (98-107)
[2022-08-30] MEDS ORDERED: FENTANYL CITRATE/PF 50MCG/ML 2ML VIAL ONE (13:44)
[2022-08-30] MEDS ORDERED: FENTANYL CITRATE/PF 50MCG/ML 2ML VIAL IV NR (14:15)
== END 2022-08-30 15:00 | disposition home or self-care (01) ==
LOC: ER 10:51
DX: T82.49XA Other complication of vascular dialysis catheter, initial encounter (principal); Y82.8 Other medical devices associated with adverse incidents; I12.0 Hypertensive chronic kidney disease with stage 5 chronic kidney disease or end stage renal disease; N18.6 End stage renal disease; Z99.2 Dependence on renal dialysis; Y84.1 Kidney dialysis as the cause of abnormal reaction of the patient, or of later complication, without mention of misadventure at the time of the procedure; Y92.89 Other specified places as the place of occurrence of the external cause; Z88.0 Allergy status to penicillin; Z79.899 Other long term (current) drug therapy
CPT/HCPCS: 36415; 36905; 71045; 80053; 85025; 85610; 96365; 96375; 99284; C1725; C1766; C1769; J1644; J2997; J3010; J3490; J7060; Q9967; Z7610; 99152; 99153; G0500

== ENCOUNTER 2022-09-21 07:38 | Emergency (ER) | payer MEDICAID ==
[~2022-09-21] VITALS: Ht 182.9 cm; Wt 77.2 kg
[2022-09-21 09:42] VITALS: BP 169/98
== END 2022-09-21 09:48 | disposition home or self-care (01) ==
LOC: ER 08:01
DX: Z48.02 Encounter for removal of sutures (principal); Z88.0 Allergy status to penicillin
CPT/HCPCS: 99281; Z7610

== ENCOUNTER 2022-10-07 21:07 | Inpatient (IN) | payer MEDICAID ==
[~2022-10-07] VITALS: Ht 182.9 cm; Wt 76.7 kg
[2022-10-07 22:04] LABS: CHLORIDE 91 mEq/L (98-107)
[2022-10-07 22:16] LABS: BASOPHILS % 0.7 % (0.0-2.0); EOSINOPHILS % 2.1 % (0.0-5.0); LYMPHOCYTES % 10.7 % (20.0-50.0); MEAN CORPUSCULAR VOLUME 89.1 fL (80.0-94.0); MONOCYTES % 7.3 % (2.0-8.0); NEUTROPHILS % 79.2 % (40.0-76.0); PLATELET 312 x1000/uL (130-400); RED BLOOD CELL COUNT 1.75 mill/uL (4.7-6.1)
[2022-10-07 22:49] LABS: HEMOGLOBIN. 5.1 g/dL (14.0-18.0)
[2022-10-07 22:50] LABS: HEMATOCRIT. 15.6 % (42.0-52.0)
[2022-10-08] VITALS (17 sets, daily range): BP systolic 123–189; BP diastolic 62–86
[2022-10-08] MEDS ORDERED: ONDANSETRON HCL 4MG/2ML INJ IV PRN (00:15)
[2022-10-08] MEDS ORDERED: DOCUSATE SODIUM 100MG CAPSULE PO PRN (00:15)
[2022-10-08] MEDS ORDERED: ACETAMINOPHEN 325MG TABLET PO PRN (00:15)
[2022-10-08] MEDS ORDERED: IPRATROPIUM/ALBUTEROL 0.5-3(2.5)MG/3ML NEB HHN PRN (00:15)
[2022-10-08] MEDS ORDERED: CLONIDINE 0.1MG TABLET PO PRN (00:15)
[2022-10-08] MEDS ORDERED: GUAIFENESIN 200MG/10ML SUGAR FREE UDC PO PRN (00:15)
[2022-10-08] MEDS ORDERED: DEXTROSE 50% WATER 50ML SYRINGE IV PRN (02:15)
[2022-10-08] MEDS: INSULIN LISPRO 100 UNITS/ML SUBCUT SCH ×4 (06:22→20:59)
[2022-10-08] MEDS: BLOOD SUGAR DIAGNOSTIC STRIP TEST SCH ×4 (06:22→20:57)
[2022-10-08 08:56] LABS: BASOPHILS % 0.7 % (0.0-2.0); EOSINOPHILS % 2.7 % (0.0-5.0); LYMPHOCYTES % 9.4 % (20.0-50.0); MEAN CORPUSCULAR HEMOGLOBIN 29.1 pg (28.0-32.0); MEAN CORPUSCULAR VOLUME 86.7 fL (80.0-94.0); MEAN PLATELET VOLUME 6.8 fl (7.4-10.4); MONOCYTES % 6.1 % (2.0-8.0); NEUTROPHILS % 81.1 % (40.0-76.0); PLATELET 303 x1000/uL (130-400); RED CELL DISTRIBUTION WIDTH 15.7 % (11.6-14.6)
[2022-10-08] MEDS ORDERED: FOLIC ACID 1MG TABLET PO SCH (09:00)
[2022-10-08 09:10] LABS: CHLORIDE 93 mEq/L (98-107)
[2022-10-08 09:28] LABS: PHOSPHORUS 2.8 mg/dL (2.5-4.9); T4 FREE 1.15 ng/dL (0.76-1.46); TOTAL IRON BINDING CAPACITY 151 ug/dL (250-450)
[2022-10-08 09:36] LABS: HEPATITIS B SURFACE ANTIGEN NEGATIVE
[2022-10-08] MEDS: FAMOTIDINE 20MG TABLET PO SCH (09:43)
[2022-10-08] MEDS: FERROUS SULFATE 325MG TABLET PO SCH (09:43)
[2022-10-08] MEDS: MULTIVITAMINS,THER W-MINERALS TABLET PO SCH (09:44)
[2022-10-08] MEDS: THIAMINE HCL 100MG TABLET PO SCH (09:45)
[2022-10-08 10:03] LABS: HEMOGLOBIN. 6.4 g/dL (14.0-18.0)
[2022-10-08 10:23] LABS: VITAMIN B12 SERUM >2000 pg/mL pg/mL (211-911)
[2022-10-08] MEDS ORDERED: INFLUENZA VACCINE 05/PF 0.5 ML SYRINGE IM ONE (11:00)
[2022-10-08] MEDS: SEVELAMER CARBONATE 800 MG TABLET PO SCH ×2 (13:21→18:36)
[2022-10-08] MEDS: CARVEDILOL 6.25 MG TABLET PO SCH ×2 (13:21→20:57)
[2022-10-08] MEDS: FOLIC ACID/VITAMIN B COMP W-C TABLET PO SCH (13:26)
[2022-10-08 17:24] LABS: HEMATOCRIT 20.6 % (42.0-52.0); HEMOGLOBIN 7.3 g/dL (14.0-18.0)
[2022-10-08] MEDS: BENAZEPRIL 10MG TABLET PO SCH (18:38)
[2022-10-08] MEDS ORDERED: AZITHROMYCIN 500 MG TABLET PO NR (19:30)
[2022-10-08] MEDS: GUAIFENESIN 600MG ER TABLET PO SCH (20:57)
[2022-10-08] MEDS ORDERED: EPOETIN ALFA-EPBX 4,000 UNIT/ML VIAL SUBCUT SCH (21:00)
[2022-10-09] VITALS: BP 163/64
[2022-10-09 02:16] LABS: HEMATOCRIT 21.8 % (42.0-52.0); HEMOGLOBIN 7.5 g/dL (14.0-18.0)
[2022-10-09 04:00] VITALS: BP 153/61
[2022-10-09] MEDS: INSULIN LISPRO 100 UNITS/ML SUBCUT SCH ×2 (06:12→12:10)
[2022-10-09] MEDS: BLOOD SUGAR DIAGNOSTIC STRIP TEST SCH ×2 (06:12→11:40)
[2022-10-09] MEDS: SEVELAMER CARBONATE 800 MG TABLET PO SCH ×2 (06:14→13:32)
[2022-10-09 06:23] LABS: BASOPHILS % 0.8 % (0.0-2.0); EOSINOPHILS % 4.6 % (0.0-5.0); HEMATOCRIT. 21.6 % (42.0-52.0); HEMOGLOBIN. 7.6 g/dL (14.0-18.0); LYMPHOCYTES % 9.4 % (20.0-50.0); MEAN CORPUSCULAR HEMOGLOBIN 29.8 pg (28.0-32.0); MEAN CORPUSCULAR VOLUME 84.7 fL (80.0-94.0); MEAN PLATELET VOLUME 6.9 fl (7.4-10.4); NEUTROPHILS % 77.2 % (40.0-76.0); PLATELET 326 x1000/uL (130-400); RED BLOOD CELL COUNT 2.55 mill/uL (4.7-6.1); RED CELL DISTRIBUTION WIDTH 15.8 % (11.6-14.6)
[2022-10-09 08:00] VITALS: BP 161/59
[2022-10-09 09:06] LABS: PHOSPHORUS 3.6 mg/dL (2.5-4.9)
[2022-10-09] MEDS: FERROUS SULFATE 325MG TABLET PO SCH (10:15)
[2022-10-09] MEDS: MULTIVITAMINS,THER W-MINERALS TABLET PO SCH (10:16)
[2022-10-09] MEDS: THIAMINE HCL 100MG TABLET PO SCH (10:16)
[2022-10-09] MEDS: GUAIFENESIN 600MG ER TABLET PO SCH (10:16)
[2022-10-09] MEDS: FAMOTIDINE 20MG TABLET PO SCH (10:16)
[2022-10-09] MEDS: CARVEDILOL 6.25 MG TABLET PO SCH (10:16)
[2022-10-09] MEDS: FOLIC ACID/VITAMIN B COMP W-C TABLET PO SCH (10:17)
[2022-10-09] MEDS: BENAZEPRIL 10MG TABLET PO SCH (10:17)
[2022-10-09 12:00] VITALS: BP 155/62
[2022-10-09] MEDS ORDERED: BENA-8 PO (12:19)
[2022-10-09] MEDS ORDERED: GABA-532 PO (12:31)
[2022-10-09] MEDS ORDERED: EPOETIN ALFA-EPBX 4,000 UNIT/ML VIAL SUBCUT NR (13:00)
[2022-10-09 13:10] LABS: HEMATOCRIT 22.3 % (42.0-52.0); HEMOGLOBIN 7.7 g/dL (14.0-18.0)
[2022-10-09 15:39] VITALS: BP 148/79
[2022-10-09 16:00] VITALS: BP 158/65
[2022-10-09] MEDS ORDERED: AZITHROMYCIN 250 MG TABLET PO SCH (19:00)
[2022-10-09] MEDS ORDERED: CARVEDILOL 12.5MG TABLET PO SCH (21:00)
== END 2022-10-09 17:22 | disposition home or self-care (01) | DRG 133 ==
LOC: ER 21:07 → 7EST 23:32 → SUPCPDRO 23:52 → ENRESERV 10-08 00:38
PROVIDERS: ADMIT Internal Medicine; ATTEND Internal Medicine
PROC: 30233N1 Transfusion of Nonautologous Red Blood Cells into Peripheral Vein, Percutaneous Approach (ICD-10-PCS; principal; 2022-10-08)
PROC: 5A1D70Z Performance of Urinary Filtration, Intermittent, Less than 6 Hours Per Day (ICD-10-PCS; 2022-10-08)
DX: J96.01 Acute respiratory failure with hypoxia (principal); I12.0 Hypertensive chronic kidney disease with stage 5 chronic kidney disease or end stage renal disease; D63.1 Anemia in chronic kidney disease; E87.1 Hypo-osmolality and hyponatremia; E11.319 Type 2 diabetes mellitus with unspecified diabetic retinopathy without macular edema; E11.22 Type 2 diabetes mellitus with diabetic chronic kidney disease; D50.9 Iron deficiency anemia, unspecified; N18.6 End stage renal disease; E78.5 Hyperlipidemia, unspecified; E87.5 Hyperkalemia; Z20.822 Contact with and (suspected) exposure to COVID-19; Z88.0 Allergy status to penicillin; Z99.2 Dependence on renal dialysis; K21.9 Gastro-esophageal reflux disease without esophagitis; E11.51 Type 2 diabetes mellitus with diabetic peripheral angiopathy without gangrene; E87.70 Fluid overload, unspecified; E11.40 Type 2 diabetes mellitus with diabetic neuropathy, unspecified; Z79.4 Long term (current) use of insulin; Z79.899 Other long term (current) drug therapy; Z87.01 Personal history of pneumonia (recurrent); Z98.62 Peripheral vascular angioplasty status
CPT/HCPCS: 36415; 71045; 80048; 80053; 80061; 82270; 82607; 82728; 82746; 82962; 83036; 83540; 83550; 83735; 83880; 84100; 84439; 84443; 84484; 85014; 85018; 85025; 85044; 86803; 86850; 86900; 86920; 87340; 87426; 90935; 93005; 99291; J0885; J1815; P9016

== ENCOUNTER 2023-04-17 09:55 | Emergency (ER) | payer MEDICAID ==
[~2023-04-17] VITALS: Ht 185.4 cm; Wt 77.0 kg
[~2023-04-17 09:55] MED LIST changes: -ASCO500C18 PO; +ASPI-1406 PO; +BENA-8 PO; -BENA10TA74 MT; -CLON-457 MT; +CLON-493 MT; +GABA-532 PO; -GABA600T PO; -HYDR-4001 MT; -HYDR-4135 PO; +HYDR100T26 PO; -LOPHC2 PO; -LOSA100T32 MT; +METO100T16 PO; +NEPVIT PO
[2023-04-17 10:19] VITALS: BP 92/58; PULSE 99; RESP 16; O2SAT 96
[2023-04-17 11:43] LABS: BASOPHILS % 0.6 % (0.0-2.0); DIFFERENTIAL COMMENT 0; EOSINOPHILS % 1.2 % (0.0-5.0); HEMATOCRIT. 38.2 % (42.0-52.0); HEMOGLOBIN. 11.7 g/dL (14.0-18.0); LYMPHOCYTES % 8.5 % (20.0-50.0); MEAN CORPUSCULAR HEMOGLOBIN 26.4 pg (28.0-32.0); MEAN CORPUSCULAR HGB CONC 30.5 g/dL (31.0-37.0); MEAN CORPUSCULAR VOLUME 86.7 fL (80.0-94.0); MEAN PLATELET VOLUME 7.4 fl (7.4-10.4); MONOCYTES % 10.6 % (2.0-8.0); NEUTROPHILS % 79.1 % (40.0-76.0); PLATELET 181 x1000/uL (130-400); RED BLOOD CELL COUNT 4.41 mill/uL (4.7-6.1); RED CELL DISTRIBUTION WIDTH 21.4 % (11.6-14.6); WHITE BLOOD COUNT 9.9 x1000/uL (4.5-11.0)
[2023-04-17 11:50] LABS: CHLORIDE 93 mEq/L (98-107); PROTHROMBIN TIME 11.2 sec (9.6-11.0); SODIUM 131 mEq/L (136-145)
[2023-04-17 11:57] LABS: ALANINE AMINOTRANSFERASE 18 IU/L (13-61); ALBUMIN 3.1 g/dL (3.4-5.0); ASPARTATE AMINOTRANSFERASE 13 IU/L (15-37); BILIRUBIN TOTAL 0.4 mg/dL (0.1-1.0); CALCIUM 8.9 mg/dL (8.5-10.1); CARBON DIOXIDE 29 mEq/L (21-32); GLUCOSE 161 mg/dL (70-105); PROTEIN TOTAL 8.9 g/dL (6.0-8.3); UREA NITROGEN BLOOD 43 mg/dL (7-21)
[2023-04-17 12:11] LABS: CREATININE 6.9 mg/dL (0.6-1.3)
[2023-04-17 12:29] VITALS: TEMP 98.9
[2023-04-17] MEDS ORDERED: ACETAMINOPHEN 325MG TABLET PO STA (12:29)
[2023-04-17] MEDS ORDERED: BACITRACIN ZINC OINT UDPKT TOP ONE (13:00)
[2023-04-17] MEDS ORDERED: DOXY100T28 MT (13:07)
[2023-04-17] MEDS ORDERED: ACET-2708 PO (13:07)
[2023-04-17] MEDS ORDERED: BO1 TP (13:07)
[2023-04-27] MEDS ORDERED: METR-167 MT (07:35)
[2023-04-29] MEDS ORDERED: ACET-2708 PO (14:31)
[2023-04-30] MEDS ORDERED: SULF1TAB47 MT (08:03)
== END 2023-04-17 14:27 | disposition home or self-care (01) ==
LOC: ER 09:55
DX: L03.032 Cellulitis of left toe (principal); N19 Unspecified kidney failure; I10 Essential (primary) hypertension; E11.9 Type 2 diabetes mellitus without complications; Z88.0 Allergy status to penicillin
CPT/HCPCS: 36415; 73630; 80053; 85025; 93971; 99284

== ENCOUNTER 2023-05-16 13:33 | Emergency (ER) | payer MEDICAID ==
[~2023-05-16] VITALS: Ht 182.9 cm; Wt 76.0 kg
[~2023-05-16 13:33] MED LIST changes: +ACET-2708 PO; +BO1 TP; +METR-167 MT; +SULF1TAB47 MT
[2023-05-16 13:36] VITALS: BP 136/72; TEMP 98.8; O2SAT 100
[2023-05-16 13:38] VITALS: PULSE 84
== END 2023-05-16 14:26 | disposition home or self-care (01) ==
LOC: ER 13:33
DX: Z48.02 Encounter for removal of sutures (principal); E11.9 Type 2 diabetes mellitus without complications; I10 Essential (primary) hypertension; Z79.899 Other long term (current) drug therapy; Z88.0 Allergy status to penicillin; Z79.82 Long term (current) use of aspirin
CPT/HCPCS: 99281

== ENCOUNTER 2025-05-20 06:33 | Emergency (ER) | payer MEDICAID ==
[~2025-05-20] VITALS: Ht 182.9 cm; Wt 73.0 kg
[~2025-05-20 06:33] MED LIST changes: +CALC667C PO; -DOCU-150 PO; +DOCU-422 PO; +FOLI0.8T53 PO; +GABA-1180 PO; -GABA-532 PO; +HYDR100T11 PO; -HYDR100T26 PO; +MYCO180T3 PO; -NEPVIT PO; +TELM20TA8 PO
[2025-05-20 06:45] VITALS: O2SAT 99
[2025-05-20 08:24] LABS: BASOPHILS % 0.4 % (0.0-2.0); EOSINOPHILS % 1.6 % (0.0-5.0); HEMATOCRIT. 39.2 % (42.0-52.0); HEMOGLOBIN. 11.9 g/dL (14.0-18.0); LYMPHOCYTES % 7.4 % (20.0-50.0); MEAN PLATELET VOLUME 7.7 fl (7.4-10.4); MONOCYTES % 8.3 % (2.0-8.0); NEUTROPHILS % 82.3 % (40.0-76.0); PLATELET 217 x1000/uL (130-400); RED BLOOD CELL COUNT 4.77 mill/uL (4.7-6.1); RED CELL DISTRIBUTION WIDTH 16.1 % (11.6-14.6)
[2025-05-20 08:41] LABS: CREATININE 1.2 mg/dL (0.6-1.3)
[2025-05-20 08:42] LABS: UREA NITROGEN BLOOD 23 mg/dL (9-23)
[2025-05-20 08:43] LABS: TROPONIN I HIGH SENSITIVITY 7 ng/L (3.0-53)
[2025-05-20] MEDS ORDERED: SULF1TAB48 PO (09:33)
[2025-05-20] MEDS ORDERED: CEPH500C2 PO (09:33)
[2025-05-20 09:43] VITALS: BP 169/70; PULSE 80; RESP 17; TEMP 36.7; O2SAT 100
== END 2025-05-20 09:44 | disposition home or self-care (01) ==
LOC: ER 06:33 → CMPBEDREQ 10:52
DX: L03.116 Cellulitis of left lower limb (principal); I10 Essential (primary) hypertension; E11.9 Type 2 diabetes mellitus without complications; Z79.899 Other long term (current) drug therapy; Z88.0 Allergy status to penicillin; Z94.0 Kidney transplant status
CPT/HCPCS: 80048; 83880; 85025; 84484; 36415; 99283; Z7610